=== PATIENT | female | born 1965 | race Two or more races ===

== ENCOUNTER 2018-09-20 18:07 | Emergency (ER) | payer MEDICARE, MEDICAID ==
[~2018-09-20] VITALS: Ht 160 cm; Wt 100.0 kg
[2018-09-20] MEDS ORDERED: ACETAMINOPHEN 500 MG TABLET PO ONE (18:30)
[2018-09-20 18:53] LABS: RAPID INFLUENZA A Negative (Negative); RAPID INFLUENZA B Negative (Negative)
[2018-09-20 19:04] LABS: INTERNATIONAL NORMALIZED RATIO 1.14 (0.93-1.1)
[2018-09-20 19:07] LABS: ALANINE AMINOTRANSFERASE 29 U/L (12-78); ALBUMIN 2.6 g/dL (3.4-5.0); ANION GAP 7 mmol/L (5-15); CALCIUM 7.9 mg/dL (8.5-10.1); CHLORIDE 109 mmol/L (98-107); CREATININE 0.84 mg/dL (0.55-1.02)
[2018-09-20 19:09] LABS: ALKALINE PHOSPHATASE 130 U/L (45-117); BILIRUBIN,TOTAL 2.7 mg/dL (0.2-1.0); TOTAL PROTEIN 7.5 g/dL (6.4-8.2)
[2018-09-20 19:11] LABS: MICROSCOPIC INDICATED
[2018-09-20 19:16] LABS: MD YES; MEAN CORPUSCULAR HEMOGLOBIN 33.9 pg (27.0-34.8); MEAN CORPUSCULAR HGB CONC 34.7 g/dL (32.4-35.8); MEAN CORPUSCULAR VOLUME 97.8 fL (80-100); MEAN PLATELET VOLUME 7.9 fL (7.4-10.4); PLATELET COUNT 84 x10^3/uL (130-400); RED BLOOD COUNT 3.36 x10^6/uL (3.82-5.3); RED CELL DISTRIBUTION WIDTH 15.9 % (9.6-15.2)
[2018-09-20 19:20] LABS: CULTURE INDICATED? NO
[2018-09-20 19:26] LABS: ANISOCYTOSIS 1+; BAND#(MANUAL) 0.07 x10^3/uL; BANDS%(MANUAL) 3 % (0-7); LYMPH#(MANUAL) 0.67 x10^3/uL (1-3.4); LYMPHS% (MANUAL) 29 % (22-44); MONOS#(MANUAL) 0.05 x10^3/uL (0.3-2.7); MONOS% (MANUAL) 2 % (2-9); NRBC % (MANUAL) 2 % (0-1); POLYCHROMASIA 1+; SEG#(MANUAL) 1.52 x10^3/uL (1.8-6.8); SEGS% (MANUAL) 66 % (42-75)
[2018-09-20 19:27] LABS: <PLATELET ESTIMATE> DECREASED; <PLT MORPHOLOGY> NORMAL PLT MORPH
[2018-09-20] MEDS ORDERED: CEFTRIAXONE 1,000 MG IM ONE (20:30)
[2018-09-20] MEDS ORDERED: CEFTRIAXONE 1,000 MG ONE (20:31)
[2018-09-20] MEDS ORDERED: LIDOCAINE-MPF 1%, 5ML ONE (20:31)
[2018-09-20 20:33] VITALS: BP 123/71
== END 2018-09-20 20:48 | disposition home or self-care (01) ==
LOC: ED 20:35
DX: J02.9 Acute pharyngitis, unspecified (principal); M79.18 Myalgia, other site; R50.81 Fever presenting with conditions classified elsewhere; R09.89 Other specified symptoms and signs involving the circulatory and respiratory systems; Z86.19 Personal history of other infectious and parasitic diseases; Z87.440 Personal history of urinary (tract) infections
CPT/HCPCS: 36415; 71045; 80053; 81001; 83605; 85025; 85610; 87040; 87400; 96372; 99284; J0696

== ENCOUNTER 2018-10-02 14:39 | Inpatient (IN) | payer MEDICARE, MEDICAID ==
[~2018-10-02] VITALS: Ht 160 cm; Wt 100.8 kg
[2018-10-02 15:29] LABS: BASOPHILS # (AUTO) 0.02 x10^3/uL (0-0.1); BASOPHILS % (AUTO) 0 % (0-1); EOSINOPHILS # (AUTO) 0.03 x10^3/uL (0-0.4); EOSINOPHILS % (AUTO) 1 % (1-7); LYMPHOCYTES % (AUTO) 18 % (22-44); MD NO; MEAN CORPUSCULAR HEMOGLOBIN 32.8 pg (27.0-34.8); MEAN CORPUSCULAR HGB CONC 34.6 g/dL (32.4-35.8); MEAN CORPUSCULAR VOLUME 94.9 fL (80-100); MONOCYTES # (AUTO) 0.34 x10^3/uL (0.2-0.8); MONOCYTES % (AUTO) 6 % (2-9); NEUTROPHILS # (AUTO) 4.22 x10^3/uL (1.8-6.8); NEUTROPHILS % (AUTO) 75 % (42-75); PLATELET COUNT 115 x10^3/uL (130-400); RED BLOOD COUNT 3.97 x10^6/uL (3.82-5.3); RED CELL DISTRIBUTION WIDTH 16.7 % (9.6-15.2)
[2018-10-02] MEDS ORDERED: ONDANSETRON 2MG/ML, 2ML IVPush ONE (15:30)
[2018-10-02] MEDS ORDERED: MORPHINE SULFATE 4 MG/ML, 1ML IVPush PRN (15:30)
[2018-10-02] MEDS ORDERED: FAMOTIDINE 20 MG/2 ML IVP ONE (15:30)
[2018-10-02] MEDS ORDERED: MAALOX/HYOSCYAMINE/LIDOCAINE 45 ML BTL PO ONE (15:30)
[2018-10-02] MEDS ORDERED: MAALOX/HYOSCYAMINE/LIDOCAINE 45 ML BTL ONE (15:33)
[2018-10-02] MEDS ORDERED: ONDANSETRON 2MG/ML, 2ML ONE (15:33)
[2018-10-02] MEDS ORDERED: MORPHINE SULFATE 4 MG/ML, 1ML ONE ×2 (15:33→20:03)
[2018-10-02] MEDS ORDERED: FAMOTIDINE 20 MG/2 ML ONE (15:34)
[2018-10-02 15:37] LABS: ALBUMIN 2.7 g/dL (3.4-5.0); ANION GAP 7 mmol/L (5-15); CALCIUM 7.9 mg/dL (8.5-10.1); CHLORIDE 110 mmol/L (98-107)
[2018-10-02 15:42] LABS: ALANINE AMINOTRANSFERASE 42 U/L (12-78); ALKALINE PHOSPHATASE 139 U/L (45-117); BILIRUBIN,TOTAL 7.8 mg/dL (0.2-1.0); CREATININE 0.55 mg/dL (0.55-1.02); TOTAL PROTEIN 7.8 g/dL (6.4-8.2)
[2018-10-02] MEDS ORDERED: SODIUM CHLORIDE 0.9% 1,000ML IVBOLUS ONE (16:00)
[2018-10-02 16:04] LABS: CULTURE INDICATED? YES; MICROSCOPIC INDICATED
[2018-10-02] MEDS ORDERED: SODIUM CHLORIDE 0.9% 1,000 ML IV SCH (17:43)
[2018-10-02] MEDS ORDERED: morphine SULFATE 10 MG/ML, 1ML IVPush PRN (18:00)
[2018-10-02] MEDS ORDERED: BISACODYL 10 MG SUPP PR PRN (18:00)
[2018-10-02] MEDS ORDERED: CEFTRIAXONE PMX 1GM/50ML 50 ML IV SCH (18:00)
[2018-10-02] MEDS ORDERED: ONDANSETRON 2MG/ML, 2ML IVPush PRN (18:00)
[2018-10-02] MEDS ORDERED: HEPARIN 5,000 UNITS/ML, 1ML ONE (18:51)
[2018-10-02] MEDS ORDERED: METRONIDAZOLE PMX 500MG/100ML 100 ML ONE (18:51)
[2018-10-02] MEDS ORDERED: CEFTRIAXONE PMX 1GM/50ML 50 ML ONE (18:51)
[2018-10-02] MEDS: HEPARIN 5,000 UNITS/ML, 1ML SQ SCH (19:23)
[2018-10-02] MEDS: LACTATED RINGERS 1,000 ML IV SCH (20:19)
[2018-10-02] MEDS: METRONIDAZOLE PMX 500MG/100ML 100 ML IV SCH (20:20)
[2018-10-02 20:32] VITALS: BP 108/49
[2018-10-02] MEDS ORDERED: FAMOTIDINE 20 MG/2 ML IVPush SCH (21:00)
[2018-10-03] MEDS: LACTATED RINGERS 1,000 ML IV SCH ×2 (00:31→04:48)
[2018-10-03] MEDS: HEPARIN 5,000 UNITS/ML, 1ML SQ SCH ×3 (01:58→16:36)
[2018-10-03 04:00] VITALS: BP 109/47
[2018-10-03] MEDS: METRONIDAZOLE PMX 500MG/100ML 100 ML IV SCH ×4 (04:00→21:23)
[2018-10-03 04:35] LABS: CHOL/HDL RATIO 1.4
[2018-10-03 04:36] LABS: LDL/HDL RATIO 0.2 (0.5-3.0)
[2018-10-03] MEDS ORDERED: BISACODYL 10 MG SUPP PR PRN (05:30)
[2018-10-03] MEDS ORDERED: ONDANSETRON 2MG/ML, 2ML IVPush PRN (05:30)
[2018-10-03] MEDS ORDERED: LACTATED RINGERS 1,000 ML IV SCH ×2 (05:30→19:30)
[2018-10-03 07:38] LABS: ALANINE AMINOTRANSFERASE 32 U/L (12-78); ANION GAP 8 mmol/L (5-15); CALCIUM 7.6 mg/dL (8.5-10.1); CHLORIDE 114 mmol/L (98-107); CREATININE 0.41 mg/dL (0.55-1.02)
[2018-10-03 07:41] LABS: ALKALINE PHOSPHATASE 111 U/L (45-117); BILIRUBIN,TOTAL 8.5 mg/dL (0.2-1.0)
[2018-10-03 08:15] LABS: MEAN CORPUSCULAR HEMOGLOBIN 31.9 pg (27.0-34.8); MEAN CORPUSCULAR HGB CONC 33.7 g/dL (32.4-35.8); MEAN CORPUSCULAR VOLUME 94.7 fL (80-100); MEAN PLATELET VOLUME 8.8 fL (7.4-10.4); PLATELET COUNT 88 x10^3/uL (130-400); RED BLOOD COUNT 3.45 x10^6/uL (3.82-5.3); RED CELL DISTRIBUTION WIDTH 17.1 % (9.6-15.2)
[2018-10-03 08:17] LABS: BASOPHILS # (AUTO) 0.01 x10^3/uL (0-0.1); BASOPHILS % (AUTO) 0 % (0-1); EOSINOPHILS # (AUTO) 0.03 x10^3/uL (0-0.4); EOSINOPHILS % (AUTO) 1 % (1-7); LYMPHOCYTES # (AUTO) 0.67 x10^3/uL (1-3.4); LYMPHOCYTES % (AUTO) 17 % (22-44); MD SCAN; MONOCYTES # (AUTO) 0.32 x10^3/uL (0.2-0.8); MONOCYTES % (AUTO) 8 % (2-9); NEUTROPHILS # (AUTO) 2.91 x10^3/uL (1.8-6.8); NEUTROPHILS % (AUTO) 74 % (42-75)
[2018-10-03] MEDS ORDERED: POTASSIUM CHLORIDE 10% 40 MEQ/30 ML UDC PO ONE (09:00)
[2018-10-03] MEDS: FAMOTIDINE 20 MG/2 ML IVPush SCH ×2 (09:10→21:23)
[2018-10-03] MEDS ORDERED: MAGNESIUM SULFATE PMX 4GM/100M 100 ML IV ONE (09:30)
[2018-10-03] MEDS ORDERED: POTASSIUM CHLORIDE 40 MEQ in SODIUM CHLORIDE 0.9% 500 ML IV ONE (09:30)
[2018-10-03] MEDS: THIAMINE 200 MG in SODIUM CHLORIDE 0.9% 50 ML IV SCH (09:51)
[2018-10-03] MEDS: D5%-0.45% NACL 1,000 ML IV SCH ×2 (10:42→17:30)
[2018-10-03 12:11] LABS: INTERNATIONAL NORMALIZED RATIO 1.34 (0.93-1.1)
[2018-10-03 12:31] VITALS: BP 101/66
[2018-10-03] MEDS ORDERED: SODIUM CHLORIDE 0.9% 1,000 ML IV SCH (17:43)
[2018-10-03] MEDS: CEFTRIAXONE PMX 1GM/50ML 50 ML IV SCH (17:53)
[2018-10-03] MEDS: morphine SULFATE 10 MG/ML, 1ML IVPush PRN (17:59)
[2018-10-03 19:12] VITALS: BP 105/69
[2018-10-04] MEDS: HEPARIN 5,000 UNITS/ML, 1ML SQ SCH ×4 (00:23→19:32)
[2018-10-04 01:35] VITALS: BP 105/54
[2018-10-04] MEDS: D5%-0.45% NACL 1,000 ML IV SCH ×3 (02:20→21:46)
[2018-10-04 05:22] LABS: CHLORIDE 110 mmol/L (98-107)
[2018-10-04 05:24] LABS: MEAN CORPUSCULAR HEMOGLOBIN 32.9 pg (27.0-34.8); MEAN CORPUSCULAR HGB CONC 34.6 g/dL (32.4-35.8); MEAN CORPUSCULAR VOLUME 95.2 fL (80-100); MEAN PLATELET VOLUME 8.4 fL (7.4-10.4); PLATELET COUNT 89 x10^3/uL (130-400); RED BLOOD COUNT 3.32 x10^6/uL (3.82-5.3); RED CELL DISTRIBUTION WIDTH 17.1 % (9.6-15.2)
[2018-10-04] MEDS: METRONIDAZOLE PMX 500MG/100ML 100 ML IV SCH ×3 (05:30→21:46)
[2018-10-04 05:37] LABS: ALANINE AMINOTRANSFERASE 31 U/L (12-78); ALBUMIN 2.1 g/dL (3.4-5.0); ALKALINE PHOSPHATASE 124 U/L (45-117); ANION GAP 5 mmol/L (5-15); BILIRUBIN,TOTAL 8.2 mg/dL (0.2-1.0); CALCIUM 7.5 mg/dL (8.5-10.1); CREATININE 0.49 mg/dL (0.55-1.02); TOTAL PROTEIN 6.2 g/dL (6.4-8.2)
[2018-10-04 05:55] LABS: BASOPHILS # (AUTO) 0.01 x10^3/uL (0-0.1); BASOPHILS % (AUTO) 0 % (0-1); EOSINOPHILS # (AUTO) 0.06 x10^3/uL (0-0.4); EOSINOPHILS % (AUTO) 1 % (1-7); LYMPHOCYTES # (AUTO) 0.79 x10^3/uL (1-3.4); LYMPHOCYTES % (AUTO) 17 % (22-44); MD SCAN; MONOCYTES # (AUTO) 0.41 x10^3/uL (0.2-0.8); MONOCYTES % (AUTO) 9 % (2-9); NEUTROPHILS # (AUTO) 3.34 x10^3/uL (1.8-6.8); NEUTROPHILS % (AUTO) 73 % (42-75)
[2018-10-04] MEDS ORDERED: POTASSIUM CHLORIDE 20 MEQ TAB.ER.PRT PO ONE (06:30)
[2018-10-04 06:42] VITALS: BP 104/65
[2018-10-04] MEDS: FAMOTIDINE 20 MG/2 ML IVPush SCH ×2 (08:33→21:45)
[2018-10-04] MEDS: NEUTRA PHOS K 250 MG TABLET PO SCH ×3 (08:33→21:45)
[2018-10-04] MEDS: THIAMINE 200 MG in SODIUM CHLORIDE 0.9% 50 ML IV SCH (11:57)
[2018-10-04 12:12] VITALS: BP 94/61
[2018-10-04] MEDS: CEFTRIAXONE PMX 1GM/50ML 50 ML IV SCH (18:26)
[2018-10-04 19:32] VITALS: BP 99/64
[2018-10-04 19:45] VITALS: BP 136/51
[2018-10-04] MEDS: morphine SULFATE 10 MG/ML, 1ML IVPush PRN (22:41)
[2018-10-05 05:03] LABS: CHLORIDE 111 mmol/L (98-107)
[2018-10-05 05:04] LABS: ALBUMIN 1.8 g/dL (3.4-5.0); ANION GAP 6 mmol/L (5-15)
[2018-10-05 05:06] LABS: MEAN CORPUSCULAR HEMOGLOBIN 33.3 pg (27.0-34.8); MEAN CORPUSCULAR HGB CONC 34.6 g/dL (32.4-35.8); MEAN CORPUSCULAR VOLUME 96.3 fL (80-100); MEAN PLATELET VOLUME 8.5 fL (7.4-10.4); PLATELET COUNT 86 x10^3/uL (130-400); RED BLOOD COUNT 3.24 x10^6/uL (3.82-5.3); RED CELL DISTRIBUTION WIDTH 17.1 % (9.6-15.2)
[2018-10-05] MEDS: METRONIDAZOLE PMX 500MG/100ML 100 ML IV SCH ×3 (05:20→21:13)
[2018-10-05 05:49] LABS: BASOPHILS # (AUTO) 0.01 x10^3/uL (0-0.1); BASOPHILS % (AUTO) 0 % (0-1); EOSINOPHILS % (AUTO) 3 % (1-7); LYMPHOCYTES # (AUTO) 0.97 x10^3/uL (1-3.4); LYMPHOCYTES % (AUTO) 26 % (22-44); MD SCAN; MONOCYTES # (AUTO) 0.37 x10^3/uL (0.2-0.8); MONOCYTES % (AUTO) 10 % (2-9); NEUTROPHILS # (AUTO) 2.25 x10^3/uL (1.8-6.8); NEUTROPHILS % (AUTO) 61 % (42-75)
[2018-10-05 07:00] VITALS: BP 94/60
[2018-10-05] MEDS ORDERED: POTASSIUM CHLORIDE 40 MEQ in SODIUM CHLORIDE 0.9% 500 ML IV ONE (07:00)
[2018-10-05 07:32] LABS: ALBUMIN 1.8 g/dL (3.4-5.0)
[2018-10-05 07:34] LABS: BILIRUBIN,INDIRECT 1.4 mg/dL (0.0-2.0); BILIRUBIN,TOTAL 5.4 mg/dL (0.2-1.0); TOTAL PROTEIN 5.8 g/dL (6.4-8.2)
[2018-10-05] MEDS: HEPARIN 5,000 UNITS/ML, 1ML SQ SCH ×2 (08:00→16:41)
[2018-10-05] MEDS: D5%-0.45% NACL 1,000 ML IV SCH ×2 (08:00→14:02)
[2018-10-05] MEDS: NEUTRA PHOS K 250 MG TABLET PO SCH ×3 (09:00→21:13)
[2018-10-05] MEDS: FAMOTIDINE 20 MG/2 ML IVPush SCH ×2 (09:00→21:13)
[2018-10-05] MEDS: THIAMINE 200 MG in SODIUM CHLORIDE 0.9% 50 ML IV SCH (09:30)
[2018-10-05] MEDS ORDERED: MIDAZOLAM 1 MG/ML, 2ML ONE (10:39)
[2018-10-05] MEDS ORDERED: FENTANYL PF 250 MCG/5ML ONE (10:39)
[2018-10-05 10:40] LABS: HCG UR SG >= 1.030 (1.003-1.030)
[2018-10-05] MEDS ORDERED: ROCURONIUM 10 MG/ML,10ML ONE (10:56)
[2018-10-05] MEDS ORDERED: PROPOFOL 10 MG/ML, 20ML ONE (10:56)
[2018-10-05] MEDS ORDERED: ONDANSETRON 2MG/ML, 2ML ONE (11:14)
[2018-10-05] MEDS ORDERED: DEXAMETHASONE 4 MG/ML, 1ML ONE (11:14)
[2018-10-05] MEDS ORDERED: SUGAMMADEX 200 MG/2 ML IVPush ONE (11:20)
[2018-10-05] MEDS ORDERED: OMNIPAQUE 350 MG/ML, 50 ML BOTTLE ONE (11:26)
[2018-10-05] MEDS ORDERED: HYDROmorphone 2 MG/ML, 1ML IVPush PRN (11:30)
[2018-10-05] MEDS ORDERED: MEPERIDINE/PF 25MG/0.5ML IVPush PRN (11:30)
[2018-10-05] MEDS ORDERED: FENTANYL PF 100 MCG/2ML IV PRN (11:30)
[2018-10-05] MEDS ORDERED: OXYcodone 5 MG/5 ML ORAL.SOL UDC PO PRN (11:30)
[2018-10-05] MEDS ORDERED: ONDANSETRON 2MG/ML, 2ML IV PRN (11:30)
[2018-10-05] MEDS ORDERED: HALOPERIDOL 5 MG/ML IV PRN (11:30)
[2018-10-05] MEDS ORDERED: LORazepam 2 MG/ML, 1ML IVPush PRN (11:30)
[2018-10-05 13:45] VITALS: BP 96/60
[2018-10-05] MEDS: CEFTRIAXONE PMX 1GM/50ML 50 ML IV SCH (16:40)
[2018-10-05 19:39] VITALS: BP 98/56
[2018-10-06] MEDS: HEPARIN 5,000 UNITS/ML, 1ML SQ SCH ×2 (01:06→08:34)
[2018-10-06] MEDS: METRONIDAZOLE PMX 500MG/100ML 100 ML IV SCH (04:58)
[2018-10-06] MEDS: D5%-0.45% NACL 1,000 ML IV SCH ×2 (04:59→11:52)
[2018-10-06 05:32] LABS: MEAN CORPUSCULAR HEMOGLOBIN 32.1 pg (27.0-34.8); MEAN CORPUSCULAR HGB CONC 33.5 g/dL (32.4-35.8); MEAN CORPUSCULAR VOLUME 95.8 fL (80-100); RED BLOOD COUNT 3.25 x10^6/uL (3.82-5.3)
[2018-10-06 05:42] LABS: CHLORIDE 110 mmol/L (98-107)
[2018-10-06 05:51] LABS: BASOPHILS % (AUTO) 0 % (0-1); EOSINOPHILS % (AUTO) 0 % (1-7); LYMPHOCYTES % (AUTO) 10 % (22-44); MD SCAN; MEAN PLATELET VOLUME 8.7 fL (7.4-10.4); MONOCYTES # (AUTO) 0.22 x10^3/uL (0.2-0.8); MONOCYTES % (AUTO) 7 % (2-9); NEUTROPHILS # (AUTO) 2.51 x10^3/uL (1.8-6.8); NEUTROPHILS % (AUTO) 83 % (42-75); PLATELET COUNT 72 x10^3/uL (130-400)
[2018-10-06 05:51] LABS: ALANINE AMINOTRANSFERASE 27 U/L (12-78); ALBUMIN 1.9 g/dL (3.4-5.0); ALKALINE PHOSPHATASE 132 U/L (45-117); ANION GAP 6 mmol/L (5-15); BILIRUBIN,TOTAL 3.6 mg/dL (0.2-1.0); CALCIUM 7.3 mg/dL (8.5-10.1); CREATININE 0.49 mg/dL (0.55-1.02); TOTAL PROTEIN 6.1 g/dL (6.4-8.2)
[2018-10-06 08:01] VITALS: BP 106/69
[2018-10-06] MEDS: FAMOTIDINE 20 MG/2 ML IVPush SCH (08:34)
[2018-10-06] MEDS: NEUTRA PHOS K 250 MG TABLET PO SCH (08:34)
[2018-10-06] MEDS: THIAMINE 200 MG in SODIUM CHLORIDE 0.9% 50 ML IV SCH (08:34)
[2018-10-06] MEDS ORDERED: CIPR500T3 PO (10:18)
[2018-10-06] MEDS ORDERED: METR500T PO (10:18)
== END 2018-10-06 12:56 | disposition home or self-care (01) | DRG 444 ==
LOC: ED 15:40 → UNDOADMIN 16:59 → EDIP 16:59 → CCU 17:43 → ED 19:37 → EDIP 19:46 → CCU 19:46 → 3NE 10-03 12:40 → DCLOUNGE 10-06 12:40
PROVIDERS: ADMIT Family Medicine; ATTEND Family Medicine
PROC: 0FC98ZZ Extirpation of Matter from Common Bile Duct, Via Natural or Artificial Opening Endoscopic (ICD-10-PCS; principal; 2018-10-02)
PROC: 0F798ZZ Dilation of Common Bile Duct, Via Natural or Artificial Opening Endoscopic (ICD-10-PCS; 2018-10-02)
PROC: BF101ZZ Fluoroscopy of Bile Ducts using Low Osmolar Contrast (ICD-10-PCS; 2018-10-02)
DX: K80.01 Calculus of gallbladder with acute cholecystitis with obstruction (principal); K85.10 Biliary acute pancreatitis without necrosis or infection; E44.0 Moderate protein-calorie malnutrition; E87.0 Hyperosmolality and hypernatremia; K76.6 Portal hypertension; K86.3 Pseudocyst of pancreas; K80.00 Calculus of gallbladder with acute cholecystitis without obstruction; D69.6 Thrombocytopenia, unspecified; R74.0 Nonspecific elevation of levels of transaminase and lactic acid dehydrogenase [LDH]; B19.20 Unspecified viral hepatitis C without hepatic coma; F10.20 Alcohol dependence, uncomplicated; R00.0 Tachycardia, unspecified; R16.1 Splenomegaly, not elsewhere classified; F17.210 Nicotine dependence, cigarettes, uncomplicated; F32.9 Major depressive disorder, single episode, unspecified; K70.30 Alcoholic cirrhosis of liver without ascites; L40.9 Psoriasis, unspecified; F12.90 Cannabis use, unspecified, uncomplicated; Z68.39 Body mass index [BMI] 39.0-39.9, adult; Z91.19 Patient's noncompliance with other medical treatment and regimen; Z80.9 Family history of malignant neoplasm, unspecified; Z82.5 Family history of asthma and other chronic lower respiratory diseases; Z83.3 Family history of diabetes mellitus
CPT/HCPCS: 36415; 74181; 74328; 76700; 80048; 80053; 80061; 80076; 81001; 81025; 82040; 83690; 83735; 84100; 85025; 85610; 86677; 87081; 87086; 99285; G0378; J0696; J1100; J1644; J2250; J2405; J2704; J3010; J3411; J3480; Q9967; C1769; J2270; J3475; J3490; J7030; J7040; J7120

== ENCOUNTER 2018-10-10 18:25 | Inpatient (IN) | payer MEDICARE, MEDICAID ==
[~2018-10-10] VITALS: Ht 160 cm; Wt 116.2 kg
[~2018-10-10 18:25] MED LIST: CIPR500T3 PO; METR500T PO
--- NOTE | 2018-10-10 18:46 | NUR ---
PT BROUGHT IN BY ANGELITA FOR ABD PAIN. PT HAD A GALLSTONE SURGERY IN SEPTEMBER. PT WITH ABD PAIN AND BILATERAL LOWER EXTREMITY SWELLING. PT A&OX4. PT WITH HX: HEP C. PT PLACED IN ROOM AND PLACED ON BP AND CONT. PULSE OXIMETER. IV STARTED BY ANGELITA. AT BEDSIDE.
--- NOTE | 2018-10-10 18:53 | NUR ---
PT REPORT FROM FANTA AGUILERA. THIS RN TO ASSUME CARE OF PT.
--- NOTE | 2018-10-10 18:59 | NUR ---
REPORT GIVEN TO SHIMA AGUILERA.
[2018-10-10] MEDS ORDERED: HYDROmorphone 2 MG/ML, 1ML IVPush PRN (19:00)
[2018-10-10] MEDS ORDERED: SODIUM CHLORIDE FLUSH 10ML SYR IVF ONE (19:00)
[2018-10-10] MEDS ORDERED: PLEASE ENTER HEIGHT AND WEIGHT MC SCH (19:00)
[2018-10-10] MEDS ORDERED: ONDANSETRON 2MG/ML, 2ML IVPush ONE (19:00)
[2018-10-10] MEDS ORDERED: ONDANSETRON 2MG/ML, 2ML ONE (19:02)
[2018-10-10] MEDS ORDERED: HYDROmorphone 2 MG/ML, 1ML ONE (19:02)
--- NOTE | 2018-10-10 19:04 | NUR ---
PT TO US.
--- NOTE | 2018-10-10 19:45 | NUR ---
LAB AT BEDSIDE FOR DRAW. PT ON COMMODE FOR ATTEMPT OF UA. BEENA.
[2018-10-10 19:59] LABS: INTERNATIONAL NORMALIZED RATIO 1.22 (0.93-1.1); PROTHROMBIN TIME 12.8 Seconds (9.6-11.5)
[2018-10-10 20:00] LABS: ALANINE AMINOTRANSFERASE 27 U/L (12-78); ALBUMIN 2.1 g/dL (3.4-5.0); ANION GAP 7 mmol/L (5-15); CHLORIDE 112 mmol/L (98-107)
[2018-10-10 20:03] LABS: ALKALINE PHOSPHATASE 144 U/L (45-117); BILIRUBIN,TOTAL 2.5 mg/dL (0.2-1.0); CREATININE 0.46 mg/dL (0.55-1.02); TOTAL PROTEIN 6.4 g/dL (6.4-8.2)
[2018-10-10 20:08] LABS: MICROSCOPIC INDICATED
[2018-10-10 20:28] LABS: MD YES; MEAN CORPUSCULAR HEMOGLOBIN 32.6 pg (27.0-34.8); MEAN CORPUSCULAR HGB CONC 34.2 g/dL (32.4-35.8); MEAN CORPUSCULAR VOLUME 95.5 fL (80-100); MEAN PLATELET VOLUME 7.6 fL (7.4-10.4); PLATELET COUNT 92 x10^3/uL (130-400); RED BLOOD COUNT 3.14 x10^6/uL (3.82-5.3); RED CELL DISTRIBUTION WIDTH 17.6 % (9.6-15.2)
[2018-10-10 20:30] LABS: CULTURE INDICATED? NO
--- NOTE | 2018-10-10 20:37 | NUR ---
AWAITING LAB RESULTS. NADN. [place]. CALL LIGHT WITHIN REACH.
[2018-10-10 21:02] LABS: BAND#(MANUAL) 0.03 x10^3/uL; BANDS%(MANUAL) 1 % (0-7); EOS#(MANUAL) 0.11 x10^3/uL (0.0-0.4); EOS% (MANUAL) 4 % (1-7); LYMPH#(MANUAL) 1.04 x10^3/uL (1-3.4); LYMPHS% (MANUAL) 37 % (22-44); MONOS#(MANUAL) 0.31 x10^3/uL (0.3-2.7); MONOS% (MANUAL) 11 % (2-9); SEG#(MANUAL) 1.32 x10^3/uL (1.8-6.8); SEGS% (MANUAL) 47 % (42-75)
[2018-10-10 21:14] LABS: POLYCHROMASIA 1+
[2018-10-10 21:15] LABS: <PLATELET ESTIMATE> DECREASED; <PLT MORPHOLOGY> NORMAL PLT MORPH; OVALOCYTES 1+
[2018-10-10 21:25] VITALS: BP 92/52
[2018-10-10] MEDS ORDERED: ONDANSETRON ODT 4 MG PO PRN (21:30)
[2018-10-10] MEDS ORDERED: BISACODYL 10 MG SUPP PR PRN (21:30)
[2018-10-10] MEDS: LACTATED RINGERS 1,000 ML IV SCH (21:59)
[2018-10-10] MEDS: HEPARIN 5,000 UNITS/ML, 1ML SQ SCH (21:59)
[2018-10-11] MEDS: morphine SULFATE 10 MG/ML, 1ML IVPush PRN ×3 (01:41→12:35)
[2018-10-11 01:55] VITALS: BP 97/66
[2018-10-11] MEDS: LACTATED RINGERS 1,000 ML IV SCH ×5 (02:34→23:20)
[2018-10-11 05:49] LABS: ANION GAP 5 mmol/L (5-15); CALCIUM 7.5 mg/dL (8.5-10.1); CHLORIDE 113 mmol/L (98-107)
[2018-10-11 05:51] LABS: MEAN CORPUSCULAR HGB CONC 33.1 g/dL (32.4-35.8); MEAN CORPUSCULAR VOLUME 96.7 fL (80-100); MEAN PLATELET VOLUME 8.6 fL (7.4-10.4); PLATELET COUNT 84 x10^3/uL (130-400); RED BLOOD COUNT 3.17 x10^6/uL (3.82-5.3); RED CELL DISTRIBUTION WIDTH 17.5 % (9.6-15.2)
[2018-10-11 05:53] LABS: ALANINE AMINOTRANSFERASE 24 U/L (12-78); ALKALINE PHOSPHATASE 132 U/L (45-117); BILIRUBIN,TOTAL 2.4 mg/dL (0.2-1.0); CREATININE 0.42 mg/dL (0.55-1.02); TOTAL PROTEIN 5.9 g/dL (6.4-8.2)
[2018-10-11 06:21] LABS: BASOPHILS # (AUTO) 0.01 x10^3/uL (0-0.1); BASOPHILS % (AUTO) 1 % (0-1); EOSINOPHILS # (AUTO) 0.11 x10^3/uL (0-0.4); EOSINOPHILS % (AUTO) 5 % (1-7); LYMPHOCYTES # (AUTO) 0.99 x10^3/uL (1-3.4); LYMPHOCYTES % (AUTO) 39 % (22-44); MD SCAN; MONOCYTES # (AUTO) 0.26 x10^3/uL (0.2-0.8); MONOCYTES % (AUTO) 10 % (2-9); NEUTROPHILS # (AUTO) 1.15 x10^3/uL (1.8-6.8); NEUTROPHILS % (AUTO) 45 % (42-75)
[2018-10-11 07:55] VITALS: BP 98/65
[2018-10-11] MEDS: HEPARIN 5,000 UNITS/ML, 1ML SQ SCH ×3 (08:23→23:21)
[2018-10-11 15:16] VITALS: BP 92/55
[2018-10-11 19:38] VITALS: BP 103/58
[2018-10-12 02:43] VITALS: BP 110/66
[2018-10-12] MEDS: morphine SULFATE 10 MG/ML, 1ML IVPush PRN ×3 (02:48→17:37)
[2018-10-12] MEDS: LACTATED RINGERS 1,000 ML IV SCH (04:32)
[2018-10-12 05:49] LABS: ALBUMIN 1.9 g/dL (3.4-5.0); ANION GAP 7 mmol/L (5-15); CALCIUM 7.5 mg/dL (8.5-10.1); CHLORIDE 109 mmol/L (98-107)
[2018-10-12 05:53] LABS: ALANINE AMINOTRANSFERASE 26 U/L (12-78); ALKALINE PHOSPHATASE 121 U/L (45-117); BILIRUBIN,TOTAL 3.3 mg/dL (0.2-1.0); CREATININE 0.46 mg/dL (0.55-1.02); MEAN CORPUSCULAR HEMOGLOBIN 32.6 pg (27.0-34.8); MEAN CORPUSCULAR HGB CONC 34.1 g/dL (32.4-35.8); MEAN CORPUSCULAR VOLUME 95.5 fL (80-100); MEAN PLATELET VOLUME 8.3 fL (7.4-10.4); PLATELET COUNT 76 x10^3/uL (130-400); RED BLOOD COUNT 3.25 x10^6/uL (3.82-5.3); RED CELL DISTRIBUTION WIDTH 17.1 % (9.6-15.2); TOTAL PROTEIN 6.1 g/dL (6.4-8.2)
[2018-10-12 06:35] LABS: BASOPHILS # (AUTO) 0.01 x10^3/uL (0-0.1); BASOPHILS % (AUTO) 1 % (0-1); EOSINOPHILS # (AUTO) 0.05 x10^3/uL (0-0.4); EOSINOPHILS % (AUTO) 2 % (1-7); LYMPHOCYTES # (AUTO) 0.78 x10^3/uL (1-3.4); LYMPHOCYTES % (AUTO) 35 % (22-44); MD NO; MONOCYTES # (AUTO) 0.23 x10^3/uL (0.2-0.8); MONOCYTES % (AUTO) 10 % (2-9); NEUTROPHILS # (AUTO) 1.15 x10^3/uL (1.8-6.8); NEUTROPHILS % (AUTO) 52 % (42-75)
[2018-10-12 07:43] VITALS: BP 116/69
[2018-10-12] MEDS ORDERED: LACTATED RINGERS 1,000 ML IV SCH (10:00)
[2018-10-12] MEDS: HEPARIN 5,000 UNITS/ML, 1ML SQ SCH ×2 (10:30→17:37)
[2018-10-12 12:39] VITALS: BP 120/73
[2018-10-12 19:18] VITALS: BP 109/83
[2018-10-12] MEDS: SPIRONOLACTONE 25 MG TABLET PO SCH (20:05)
[2018-10-13 00:14] VITALS: BP 111/63
[2018-10-13] MEDS: HEPARIN 5,000 UNITS/ML, 1ML SQ SCH ×4 (00:51→20:20)
[2018-10-13] MEDS: morphine SULFATE 10 MG/ML, 1ML IVPush PRN ×2 (01:58→09:31)
[2018-10-13 05:28] LABS: MEAN CORPUSCULAR HEMOGLOBIN 32.3 pg (27.0-34.8); MEAN CORPUSCULAR HGB CONC 33.7 g/dL (32.4-35.8); MEAN CORPUSCULAR VOLUME 95.7 fL (80-100); MEAN PLATELET VOLUME 8.4 fL (7.4-10.4); PLATELET COUNT 82 x10^3/uL (130-400); RED BLOOD COUNT 3.17 x10^6/uL (3.82-5.3); RED CELL DISTRIBUTION WIDTH 17.3 % (9.6-15.2)
[2018-10-13 05:42] LABS: CHLORIDE 108 mmol/L (98-107)
[2018-10-13 05:50] LABS: ALANINE AMINOTRANSFERASE 24 U/L (12-78); ALKALINE PHOSPHATASE 128 U/L (45-117); ANION GAP 7 mmol/L (5-15); BILIRUBIN,TOTAL 2.5 mg/dL (0.2-1.0); CALCIUM 7.3 mg/dL (8.5-10.1); TOTAL PROTEIN 6.3 g/dL (6.4-8.2)
[2018-10-13 06:03] LABS: BASOPHILS # (AUTO) 0.01 x10^3/uL (0-0.1); BASOPHILS % (AUTO) 1 % (0-1); EOSINOPHILS # (AUTO) 0.08 x10^3/uL (0-0.4); EOSINOPHILS % (AUTO) 3 % (1-7); LYMPHOCYTES # (AUTO) 0.92 x10^3/uL (1-3.4); LYMPHOCYTES % (AUTO) 39 % (22-44); MD SCAN; MONOCYTES # (AUTO) 0.28 x10^3/uL (0.2-0.8); MONOCYTES % (AUTO) 12 % (2-9); NEUTROPHILS # (AUTO) 1.08 x10^3/uL (1.8-6.8); NEUTROPHILS % (AUTO) 46 % (42-75)
[2018-10-13 08:41] VITALS: BP 118/69
[2018-10-13] MEDS: SPIRONOLACTONE 25 MG TABLET PO SCH ×2 (09:31→20:18)
[2018-10-13] MEDS ORDERED: LACTATED RINGERS 1,000 ML IV SCH (10:00)
[2018-10-13] MEDS ORDERED: morphine SULFATE 10 MG/ML, 1ML IVPush PRN (11:30)
[2018-10-13 14:45] VITALS: BP 122/73
[2018-10-13 19:14] VITALS: BP 114/64
[2018-10-14 00:55] VITALS: BP 127/71
[2018-10-14] MEDS: HEPARIN 5,000 UNITS/ML, 1ML SQ SCH ×2 (04:30→12:30)
[2018-10-14 06:04] LABS: ANION GAP 5 mmol/L (5-15); CALCIUM 7.3 mg/dL (8.5-10.1); CHLORIDE 110 mmol/L (98-107); CREATININE 0.44 mg/dL (0.55-1.02)
[2018-10-14 06:27] LABS: MEAN CORPUSCULAR HEMOGLOBIN 32.4 pg (27.0-34.8); MEAN CORPUSCULAR HGB CONC 34.1 g/dL (32.4-35.8); MEAN CORPUSCULAR VOLUME 95.1 fL (80-100); PLATELET COUNT 85 x10^3/uL (130-400); RED BLOOD COUNT 3.11 x10^6/uL (3.82-5.3); RED CELL DISTRIBUTION WIDTH 16.6 % (9.6-15.2)
[2018-10-14 07:03] LABS: MD YES
[2018-10-14 07:07] LABS: BANDS%(MANUAL) 4 % (0-7); EOS% (MANUAL) 4 % (1-7); LYMPH#(MANUAL) 1.17 x10^3/uL (1-3.4); LYMPHS% (MANUAL) 45 % (22-44); MONOS#(MANUAL) 0.21 x10^3/uL (0.3-2.7); MONOS% (MANUAL) 8 % (2-9); SEG#(MANUAL) 1.01 x10^3/uL (1.8-6.8); SEGS% (MANUAL) 39 % (42-75)
[2018-10-14 07:08] LABS: ANISOCYTOSIS 1+
[2018-10-14 07:09] LABS: <PLATELET ESTIMATE> DECREASED; <PLT MORPHOLOGY> NORMAL PLT MORPH; OVALOCYTES 1+; POLYCHROMASIA 1+
[2018-10-14 07:26] VITALS: BP 118/75
[2018-10-14 09:04] LABS: ALANINE AMINOTRANSFERASE 27 U/L (12-78); ALBUMIN 1.9 g/dL (3.4-5.0); ANION GAP 5 mmol/L (5-15); CALCIUM 7.3 mg/dL (8.5-10.1); CHLORIDE 110 mmol/L (98-107)
[2018-10-14 09:07] LABS: ALKALINE PHOSPHATASE 122 U/L (45-117); BILIRUBIN,TOTAL 2.1 mg/dL (0.2-1.0)
[2018-10-14] MEDS: SPIRONOLACTONE 25 MG TABLET PO SCH (10:17)
[2018-10-14] MEDS ORDERED: SPIR25TA PO (13:39)
[2018-10-14 13:57] VITALS: BP 123/79
[2018-11-01] MEDS ORDERED: POLY17PO5 PO (11:50)
[2018-11-01] MEDS ORDERED: OXYC5TAB3 PO (11:50)
[2018-11-01] MEDS ORDERED: TRAM50TA2 PO (11:50)
[2018-11-01] MEDS ORDERED: FAMO20TA7 PO (11:50)
[2018-11-01] MEDS ORDERED: ONDA4TAB13 SL (11:50)
[2018-11-01] MEDS ORDERED: CALC-666 PO (11:50)
== END 2018-10-14 17:30 | disposition home or self-care (01) | DRG 393 ==
LOC: ED 20:33 → EDIP 21:37 → 3NE 21:39
PROVIDERS: ADMIT Internal Medicine; ATTEND Internal Medicine
DX: K91.89 Other postprocedural complications and disorders of digestive system (principal); K85.10 Biliary acute pancreatitis without necrosis or infection; E43 Unspecified severe protein-calorie malnutrition; K76.6 Portal hypertension; D68.9 Coagulation defect, unspecified; Z68.42 Body mass index [BMI] 45.0-49.9, adult; K74.60 Unspecified cirrhosis of liver; E66.01 Morbid (severe) obesity due to excess calories; F17.210 Nicotine dependence, cigarettes, uncomplicated; D72.819 Decreased white blood cell count, unspecified; D69.6 Thrombocytopenia, unspecified; D64.9 Anemia, unspecified; L40.9 Psoriasis, unspecified; B18.2 Chronic viral hepatitis C; K80.20 Calculus of gallbladder without cholecystitis without obstruction; Z80.9 Family history of malignant neoplasm, unspecified; Z82.5 Family history of asthma and other chronic lower respiratory diseases; Z83.3 Family history of diabetes mellitus; Z90.89 Acquired absence of other organs; Z88.0 Allergy status to penicillin; Z88.6 Allergy status to analgesic agent; Z88.8 Allergy status to other drugs, medicaments and biological substances
CPT/HCPCS: 36415; 74181; 76700; 80048; 80053; 81001; 83690; 83735; 84100; 85025; 85610; 85730; 87081; 87880; 96374; 96375; G0378; J1170; J1644; J2405; J2270; J7120

== ENCOUNTER 2018-11-11 01:37 | Inpatient (IN) | payer MEDICARE, MEDICAID ==
[~2018-11-11] VITALS: Ht 160 cm; Wt 90.1 kg
[~2018-11-11 01:37] MED LIST changes: +CALC-666 PO; +FAMO20TA7 PO; +ONDA4TAB13 SL; +OXYC5TAB3 PO; +POLY17PO5 PO; +SPIR25TA PO; +TRAM50TA2 PO
--- NOTE | 2018-11-11 01:45 | NUR ---
PT BIB [facility] C/O RECENT CHOLECSYTECTOMY W/ SUTURE SITE RLQ. SUTURES APPEARS WELL APPROXIMATED AND NO SIGNS OF INFECTION NOTED. PT STATES RLQ ABD PAIN WORSENING TODAY AND "BELLY FEELING FULL." PT DENIES HYPOTENSIVE SYMPTOMS. DENIES ANY RECENT BLOODY/TARRY STOOLS. NO N/V/F NOTED. MONITORING APPLIED. VSS. CALL LIGHT WITHIN REACH. AWAITING MD ASSESSMENT.
[2018-11-11] MEDS ORDERED: SODIUM CHLORIDE FLUSH 10ML SYR IVF ONE (02:00)
[2018-11-11 02:37] LABS: BASOPHILS # (AUTO) 0.01 x10^3/uL (0-0.1); BASOPHILS % (AUTO) 0 % (0-1); EOSINOPHILS # (AUTO) 0.08 x10^3/uL (0-0.4); EOSINOPHILS % (AUTO) 2 % (1-7); LYMPHOCYTES # (AUTO) 1.12 x10^3/uL (1-3.4); LYMPHOCYTES % (AUTO) 24 % (22-44); MD NO; MEAN CORPUSCULAR HEMOGLOBIN 30.3 pg (27.0-34.8); MEAN CORPUSCULAR HGB CONC 33.6 g/dL (32.4-35.8); MEAN CORPUSCULAR VOLUME 90.2 fL (80-100); MEAN PLATELET VOLUME 8.1 fL (7.4-10.4); MONOCYTES # (AUTO) 0.48 x10^3/uL (0.2-0.8); MONOCYTES % (AUTO) 10 % (2-9); NEUTROPHILS # (AUTO) 3.01 x10^3/uL (1.8-6.8); NEUTROPHILS % (AUTO) 64 % (42-75); PLATELET COUNT 133 x10^3/uL (130-400); RED BLOOD COUNT 3.75 x10^6/uL (3.82-5.3); RED CELL DISTRIBUTION WIDTH 19.2 % (9.6-15.2)
[2018-11-11 02:39] LABS: ALANINE AMINOTRANSFERASE 18 U/L (12-78); ALBUMIN 2.3 g/dL (3.4-5.0); ANION GAP 7 mmol/L (5-15); CALCIUM 7.7 mg/dL (8.5-10.1); CHLORIDE 113 mmol/L (98-107); CREATININE 0.59 mg/dL (0.55-1.02)
[2018-11-11 02:41] LABS: ALKALINE PHOSPHATASE 97 U/L (45-117); TOTAL PROTEIN 7.4 g/dL (6.4-8.2)
--- NOTE | 2018-11-11 02:57 | NUR ---
PT TO CT NOW
[2018-11-11] MEDS ORDERED: OMNIPAQUE 350 MG/ML, 100ML BOTTLE ONE (03:00)
--- NOTE | 2018-11-11 03:08 | NUR ---
PT HAS RETURNED FROM CT AT THIS TIME.
--- NOTE | 2018-11-11 03:43 | NUR ---
PT STATES INCREASE IN PAIN AFTER "BEING JOSTLED SO MUCH" MD NOTIFIED. MD ORDERED 100 MG TRAMADOL PO. THIS RN GAVE MED PER MD ORDER.
--- NOTE | 2018-11-11 04:20 | NUR ---
PT SLEEPING COMFORTABLY ON GURNEY. RR EVEN AND UNLABORED. EASILY ROUSABLE TO NAME. CALL LIGHT WITHIN REACH. PT TBADM. AWAITING ADM BED.
[2018-11-11] MEDS ORDERED: ONDANSETRON 2MG/ML, 2ML IVPush PRN (04:30)
[2018-11-11] MEDS ORDERED: MORPHINE SULFATE 4 MG/ML, 1ML IVPush PRN (04:30)
[2018-11-11] MEDS ORDERED: SODIUM CHLORIDE FLUSH 10ML SYR IVF PRN (04:30)
[2018-11-11 04:57] VITALS: BP 91/56
[2018-11-11] MEDS ORDERED: TEMA30CA6 PO (05:17)
[2018-11-11] MEDS ORDERED: FLUO20CA19 PO (05:17)
[2018-11-11 07:15] VITALS: BP 102/65
[2018-11-11] MEDS ORDERED: D5%-0.45NACL+KCL 20MEQ 1,000 ML IV SCH (12:00)
[2018-11-11] MEDS ORDERED: BISACODYL 10 MG SUPP PR PRN (12:00)
[2018-11-11] MEDS ORDERED: ONDANSETRON 2MG/ML, 2ML IV PRN (12:00)
[2018-11-11] MEDS: SPIRONOLACTONE 25 MG TABLET PO SCH (12:52)
[2018-11-11 14:00] VITALS: BP 92/61
[2018-11-11 16:02] VITALS: BP 92/61
[2018-11-11 19:28] VITALS: BP 98/60
[2018-11-12] MEDS: SPIRONOLACTONE 25 MG TABLET PO SCH ×2 (00:22→12:02)
[2018-11-12 02:13] VITALS: BP 103/64
[2018-11-12 05:22] LABS: BASOPHILS # (AUTO) 0.03 x10^3/uL (0-0.1); BASOPHILS % (AUTO) 1 % (0-1); EOSINOPHILS # (AUTO) 0.14 x10^3/uL (0-0.4); EOSINOPHILS % (AUTO) 4 % (1-7); LYMPHOCYTES # (AUTO) 1.17 x10^3/uL (1-3.4); LYMPHOCYTES % (AUTO) 35 % (22-44); MD NO; MEAN CORPUSCULAR HEMOGLOBIN 30.5 pg (27.0-34.8); MEAN CORPUSCULAR HGB CONC 33.9 g/dL (32.4-35.8); MONOCYTES # (AUTO) 0.31 x10^3/uL (0.2-0.8); MONOCYTES % (AUTO) 9 % (2-9); NEUTROPHILS # (AUTO) 1.73 x10^3/uL (1.8-6.8); NEUTROPHILS % (AUTO) 51 % (42-75); PLATELET COUNT 132 x10^3/uL (130-400); RED CELL DISTRIBUTION WIDTH 19.2 % (9.6-15.2)
[2018-11-12 05:30] LABS: CHLORIDE 112 mmol/L (98-107)
[2018-11-12 05:35] LABS: ALANINE AMINOTRANSFERASE 16 U/L (12-78); ALBUMIN 1.9 g/dL (3.4-5.0); ALKALINE PHOSPHATASE 93 U/L (45-117); ANION GAP 4 mmol/L (5-15); BILIRUBIN, DIRECT 1.4 mg/dL (0.1-0.2); BILIRUBIN,INDIRECT 1.2 mg/dL (0.0-2.0); BILIRUBIN,TOTAL 2.6 mg/dL (0.2-1.0); CALCIUM 7.4 mg/dL (8.5-10.1); CREATININE 0.55 mg/dL (0.55-1.02); TOTAL PROTEIN 6.5 g/dL (6.4-8.2)
[2018-11-12 07:12] VITALS: BP 91/58
[2018-11-12] MEDS ORDERED: BISACODYL 10 MG SUPP PR PRN (12:00)
[2018-11-12] MEDS ORDERED: D5%-0.45NACL+KCL 20MEQ 1,000 ML IV SCH (12:00)
[2018-11-12 13:54] VITALS: BP 97/62
== END 2018-11-12 15:31 | disposition home or self-care (01) | DRG 947 ==
LOC: ED 02:16 → 4NOR 04:14
PROVIDERS: ADMIT Surgery; ATTEND Surgery
DX: G89.18 Other acute postprocedural pain (principal); K85.90 Acute pancreatitis without necrosis or infection, unspecified; K76.6 Portal hypertension; K70.30 Alcoholic cirrhosis of liver without ascites; B18.2 Chronic viral hepatitis C; D69.6 Thrombocytopenia, unspecified; F32.9 Major depressive disorder, single episode, unspecified; L40.9 Psoriasis, unspecified; D64.9 Anemia, unspecified; E87.8 Other disorders of electrolyte and fluid balance, not elsewhere classified; E66.9 Obesity, unspecified; Z68.35 Body mass index [BMI] 35.0-35.9, adult; Z80.9 Family history of malignant neoplasm, unspecified; Z82.5 Family history of asthma and other chronic lower respiratory diseases; Z83.3 Family history of diabetes mellitus; Z87.891 Personal history of nicotine dependence; Z88.6 Allergy status to analgesic agent; Z90.49 Acquired absence of other specified parts of digestive tract; Z88.0 Allergy status to penicillin
CPT/HCPCS: 36415; 74018; 74177; 78226; 80053; 82247; 82248; 83690; 85025; 99285; G0378; Q9967; A9537; J3480

== ENCOUNTER 2018-12-13 21:04 | Emergency (ER) | payer MEDICARE, MEDICAID ==
[~2018-12-13] VITALS: Ht 160 cm; Wt 90.0 kg
[~2018-12-13 21:04] MED LIST changes: +FLUO20CA19 PO; +OXYC5TAB2 PO; +TEMA30CA6 PO
[2018-12-14 00:16] LABS: BASOPHILS # (AUTO) 0.02 x10^3/uL (0-0.1); BASOPHILS % (AUTO) 1 % (0-1); EOSINOPHILS # (AUTO) 0.11 x10^3/uL (0-0.4); EOSINOPHILS % (AUTO) 2 % (1-7); LYMPHOCYTES # (AUTO) 1.45 x10^3/uL (1-3.4); LYMPHOCYTES % (AUTO) 33 % (22-44); MD NO; MEAN CORPUSCULAR HGB CONC 33.3 g/dL (32.4-35.8); MEAN CORPUSCULAR VOLUME 90.1 fL (80-100); MEAN PLATELET VOLUME 8.3 fL (7.4-10.4); MONOCYTES # (AUTO) 0.41 x10^3/uL (0.2-0.8); MONOCYTES % (AUTO) 9 % (2-9); NEUTROPHILS # (AUTO) 2.42 x10^3/uL (1.8-6.8); NEUTROPHILS % (AUTO) 55 % (42-75); PLATELET COUNT 114 x10^3/uL (130-400); RED BLOOD COUNT 4.06 x10^6/uL (3.82-5.3)
[2018-12-14 00:27] LABS: ALANINE AMINOTRANSFERASE 65 U/L (12-78); ALBUMIN 2.6 g/dL (3.4-5.0); ANION GAP 5 mmol/L (5-15); CALCIUM 8.6 mg/dL (8.5-10.1); CHLORIDE 111 mmol/L (98-107); CREATININE 0.48 mg/dL (0.55-1.02)
[2018-12-14 00:28] LABS: ALKALINE PHOSPHATASE 115 U/L (45-117); BILIRUBIN,TOTAL 3.2 mg/dL (0.2-1.0); TOTAL PROTEIN 7.9 g/dL (6.4-8.2)
--- NOTE | 2018-12-14 03:20 | NUR ---
PT UP TO BATHROOM FOR UA.
--- NOTE | 2018-12-14 03:40 | NUR ---
UA SENT TO LAB. PT RESTING. VSS. PA AT BEDSIDE. CALL LIGHT IN REACH
[2018-12-14] MEDS ORDERED: SODIUM CHLORIDE 0.9% 1,000ML IVBOLUS ONE (04:00)
[2018-12-14 04:02] LABS: MICROSCOPIC INDICATED
[2018-12-14 04:12] LABS: CULTURE INDICATED? NO
[2018-12-14 04:59] VITALS: BP 112/49
--- NOTE | 2018-12-14 05:15 | NUR ---
PIV IN PLACE AND FLUIDS RUNNING. PT REMINDED THAT STOOL SAMPLE IS NEEDED. VSS. PT HAS NO NEEDS AT THIS TIME
--- NOTE | 2018-12-14 05:54 | NUR ---
Patient given discharge instructions and they have confirmed that they understand the instructions. Patient ambulatory with steady gait.
[2018-12-14 06:01] LABS: AMPHETAMINE SCREEN, URINE Positive (Negative); BARBITURATE SCREEN, URINE Negative (Negative); BENZODIAZEPINE SCREEN, URINE Negative (Negative); CANNABINOID SCREEN, URINE Negative (Negative); COCAINE SCREEN, URINE Negative (Negative); METHADONE SCREEN, URINE Negative (Negative); OPIATE SCREEN, URINE Negative (Negative)
== END 2018-12-14 05:57 | disposition home or self-care (01) ==
LOC: ED 23:59
DX: R19.7 Diarrhea, unspecified (principal); M54.5 Low back pain; Z90.49 Acquired absence of other specified parts of digestive tract; Z86.19 Personal history of other infectious and parasitic diseases; F17.200 Nicotine dependence, unspecified, uncomplicated
CPT/HCPCS: 36415; 74021; 76700; 80053; 80307; 81001; 83690; 85025; 96360; 99284; J7030

== ENCOUNTER 2018-12-17 17:26 | Emergency (ER) | payer MEDICARE, MEDICAID ==
[~2018-12-17] VITALS: Ht 160 cm; Wt 88.0 kg
--- NOTE | 2018-12-17 18:14 | NUR ---
FIRST CONTACT WITH PT: Pt resting on gurney connected to all monitors. Pt states, "I was told I have a bladder infection last tuesday, I havn't got my antibiotics filled because I don't get paid till Tuesday. My back is hurting where my kidneys are. My left knee is hurting and cracking." NADN. Pt has call light within reach. All safety measures in place.
--- NOTE | 2018-12-17 18:58 | NUR ---
Pt up with SBA to bedside commode to provide urine sample. Pt assisted back to [facility]. Sent UA to lab.
--- NOTE | 2018-12-17 18:59 | NUR ---
Provided bedside report to ALE Ramachandran. All questions answered.
[2018-12-17 19:08] LABS: MICROSCOPIC INDICATED
[2018-12-17 19:16] VITALS: BP 93/38
--- NOTE | 2018-12-17 19:38 | NUR ---
pt will be dc'd
[2018-12-17 19:49] LABS: CULTURE INDICATED? NO
== END 2018-12-17 19:58 | disposition home or self-care (01) ==
LOC: ED 19:09
DX: M13.862 Other specified arthritis, left knee (principal); M54.5 Low back pain; G89.29 Other chronic pain; F17.200 Nicotine dependence, unspecified, uncomplicated; I10 Essential (primary) hypertension; R30.0 Dysuria; Z90.49 Acquired absence of other specified parts of digestive tract; Z86.19 Personal history of other infectious and parasitic diseases
CPT/HCPCS: 81001; 99284

== ENCOUNTER 2018-12-25 01:12 | Emergency (ER) | payer MEDICARE, MEDICAID ==
[~2018-12-25] VITALS: Ht 162.6 cm; Wt 88.0 kg
[2018-12-25 01:17] VITALS: BP 134/74
[2018-12-25] MEDS ORDERED: AZITHROMYCIN 250 MG TABLET ONE (02:04)
--- NOTE | 2018-12-25 02:11 | NUR ---
BREAK RN: PT DEMANDING TO BE EVALUATED FOR BACK PAIN. PT INFORMED THIS WAS NOT A PART OF HER ORIGINAL COMPLAINT. PT STATED, "WELL THAT'S WHAT I CAME IN FOR". ERP AWARE, PT REMAINS DISCHARGED. PT REFUSED ORDERED ABX. PT REFUSING TO LEAVE, SECURITY CALLED TO ASSIST PT AND HER FRIEND SAFELY OUT.
--- NOTE | 2018-12-25 02:15 | NUR ---
PT VERBALLY ABUSIVE TO STAFF, SHOUTING A PLETHORA OF SWEAR WORDS AND YELLING AT HER MALE FRIEND WHO IS LAYING ON THE FLOOR. PT ABLE TO DRESS HERSELF. SECURITY ABLE TO ESCORT PT OUT OF ER.
[2018-12-25] MEDS ORDERED: AZITHROMYCIN 500 MG TABLET PO ONE (02:30)
[2018-12-25] MEDS ORDERED: AZITHROMYCIN 250 MG TABLET PO ONE (02:30)
== END 2018-12-25 02:16 | disposition home or self-care (01) ==
LOC: ED 01:30
DX: J20.9 Acute bronchitis, unspecified (principal); Z90.49 Acquired absence of other specified parts of digestive tract; Z90.89 Acquired absence of other organs
CPT/HCPCS: 71045; 99283

== ENCOUNTER 2018-12-25 10:56 | Emergency (ER) | payer MEDICARE, MEDICAID ==
[~2018-12-25] VITALS: Ht 160 cm; Wt 90.0 kg
--- NOTE | 2018-12-25 13:00 | NUR ---
ASSUMED CARE OF PT AT THIS TIME 1300 FROM LOBBY. PT TO ROOM VIA WHEELCHAIR, REQUIRED ASSISTANCE TO BED. 53 Y/O F PRESENTS STATED "I WAS SEEN HERE LAST NIGHT AND DISCHARGED THIS MORNING, THEY TOLD ME I HAVE BRONCHITIS BUT I'M IN SO MUCH PAIN IN MY BACK, EARS, NECK AND SINUSES, I CAN BARELY WALK BECAUSE THEY PAIN." RATES BACK, NECK, EAR PAIN 10/10. CONT PULSE OX, BP, CARDIAC MONITORS APPLIED. VSS. ST ON MONITOR. AWAITING EVAL BY ERP. A&OX4. ASSESSMENT COMPLETED.
--- NOTE | 2018-12-25 13:18 | NUR ---
DR. DOSHI AT BEDSIDE FOR EVALUATION.
[2018-12-25] MEDS ORDERED: METHOCARBAMOL 750 MG TABLET PO ONE (13:30)
[2018-12-25 13:44] LABS: BASOPHILS # (AUTO) 0.02 x10^3/uL (0-0.1); BASOPHILS % (AUTO) 1 % (0-1); EOSINOPHILS # (AUTO) 0.11 x10^3/uL (0-0.4); EOSINOPHILS % (AUTO) 3 % (1-7); LYMPHOCYTES # (AUTO) 1.16 x10^3/uL (1-3.4); LYMPHOCYTES % (AUTO) 34 % (22-44); MD NO; MEAN CORPUSCULAR HGB CONC 34.3 g/dL (32.4-35.8); MEAN CORPUSCULAR VOLUME 87.6 fL (80-100); MONOCYTES % (AUTO) 12 % (2-9); NEUTROPHILS # (AUTO) 1.77 x10^3/uL (1.8-6.8); NEUTROPHILS % (AUTO) 51 % (42-75); PLATELET COUNT 108 x10^3/uL (130-400); RED BLOOD COUNT 4.25 x10^6/uL (3.82-5.3); RED CELL DISTRIBUTION WIDTH 19.8 % (9.6-15.2)
[2018-12-25 13:51] LABS: ALBUMIN 2.6 g/dL (3.4-5.0); ANION GAP 6 mmol/L (5-15); CALCIUM 8.3 mg/dL (8.5-10.1); CHLORIDE 110 mmol/L (98-107); CREATININE 0.52 mg/dL (0.55-1.02)
[2018-12-25 14:03] LABS: ALANINE AMINOTRANSFERASE 48 U/L (12-78); ALKALINE PHOSPHATASE 112 U/L (45-117); BILIRUBIN,TOTAL 4.5 mg/dL (0.2-1.0); TOTAL PROTEIN 7.5 g/dL (6.4-8.2)
--- NOTE | 2018-12-25 14:15 | NUR ---
PT RESTING COMFORTABLY. DENIES NEED TO USE RESTROOM. AWARE UA SAMPLE NEEDED. CALL LIGHT IN REACH. VSS. TO MEDICATE PER ORDER. WARM BLANKET PROVIDED FOR COMFORT.
[2018-12-25] MEDS ORDERED: METHOCARBAMOL 750 MG TABLET ONE (15:09)
--- NOTE | 2018-12-25 15:26 | NUR ---
PT MEDICATED NOTED PER ORDER FOR 10/10 BACK AND NECK PAIN. PT AMBULATED TO RESTROOM WITH OWN CANE WITH ASSISTANCE. CLEAN CATCH UA COLLECTED AND SENT TO LAB. CALL LIGHT IN REACH. FALL PRECAUTIONS IN PLACE. WARM BLANKET PROVIDED FOR COMFORT.
[2018-12-25 15:47] LABS: CULTURE INDICATED? YES; MICROSCOPIC INDICATED
--- NOTE | 2018-12-25 16:30 | NUR ---
PT REPORTS PAIN IS UNIMPROVED, DISCUSSED WITH DR. DOSHI, AWARE, NO NEW ORDERS RECEIVED. PT UP FOR RECHECK. CALL LIGHT IN REACH. VSS. DENIES NEED TO USE RESTROOM.
[2018-12-25 17:18] VITALS: BP 126/57
--- NOTE | 2018-12-25 17:20 | NUR ---
Patient/Caregiver given discharge instructions and they have confirmed that they understand the instructions. Patient ambulatory with steady gait using cane. Given snacks, cab voucher & prescription assistance information .
== END 2018-12-25 17:22 | disposition home or self-care (01) ==
LOC: ED 14:09
DX: N30.00 Acute cystitis without hematuria (principal); I10 Essential (primary) hypertension; M19.90 Unspecified osteoarthritis, unspecified site; F17.200 Nicotine dependence, unspecified, uncomplicated; Z90.49 Acquired absence of other specified parts of digestive tract; Z86.19 Personal history of other infectious and parasitic diseases
CPT/HCPCS: 36415; 80053; 81001; 83690; 85025; 87086; 99283

== ENCOUNTER 2019-01-01 11:50 | Emergency (ER) | payer MEDICARE, MEDICAID ==
[~2019-01-01] VITALS: Ht 160 cm; Wt 87.3 kg
--- NOTE | 2019-01-01 12:27 | NUR ---
PT TO ROOM FROM LOBBY, PLACED ON MONITOR, C/O 910 RUQ ABD PAIN SINCE 7AM. ALSO C/O EYES BURNING. HX CIRRHOSIS, HEP C
[2019-01-01 13:39] LABS: BASOPHILS # (AUTO) 0.02 x10^3/uL (0-0.1); BASOPHILS % (AUTO) 0 % (0-1); EOSINOPHILS # (AUTO) 0.04 x10^3/uL (0-0.4); EOSINOPHILS % (AUTO) 1 % (1-7); LYMPHOCYTES # (AUTO) 0.96 x10^3/uL (1-3.4); LYMPHOCYTES % (AUTO) 20 % (22-44); MD NO; MEAN CORPUSCULAR HEMOGLOBIN 30.3 pg (27.0-34.8); MEAN PLATELET VOLUME 8.3 fL (7.4-10.4); MONOCYTES # (AUTO) 0.28 x10^3/uL (0.2-0.8); MONOCYTES % (AUTO) 6 % (2-9); NEUTROPHILS # (AUTO) 3.59 x10^3/uL (1.8-6.8); NEUTROPHILS % (AUTO) 73 % (42-75); PLATELET COUNT 126 x10^3/uL (130-400); RED BLOOD COUNT 4.23 x10^6/uL (3.82-5.3); RED CELL DISTRIBUTION WIDTH 19.9 % (9.6-15.2)
--- NOTE | 2019-01-01 13:44 | NUR ---
PT RESTING IN [facility] WATCHING TV, ON MONITOR, VSS, NAD. UA SENT TO LAB
[2019-01-01 13:49] LABS: INTERNATIONAL NORMALIZED RATIO 1.22 (0.93-1.1); PROTHROMBIN TIME 12.7 Seconds (9.6-11.5)
[2019-01-01 13:51] LABS: ALANINE AMINOTRANSFERASE 35 U/L (12-78); ALBUMIN 2.6 g/dL (3.4-5.0); ANION GAP 5 mmol/L (5-15); CHLORIDE 112 mmol/L (98-107)
[2019-01-01 13:53] LABS: ALKALINE PHOSPHATASE 113 U/L (45-117); BILIRUBIN,TOTAL 3.6 mg/dL (0.2-1.0)
[2019-01-01 14:04] LABS: MICROSCOPIC INDICATED
[2019-01-01 14:07] LABS: CULTURE INDICATED? YES
--- NOTE | 2019-01-01 14:45 | NUR ---
PT SLEEPING IN GURNEY, EQUAL CHEST RISE AND FALL. AWAITING US AND LAB RESULTS
--- NOTE | 2019-01-01 15:45 | NUR ---
PT SLEEPING IN GURNEY, EQUAL CHEST RISE AND FALL. CALL LIGHT WITHIN REACH
--- NOTE | 2019-01-01 16:11 | NUR ---
CALLED US RE: US BEING CANCELLED, US TECH STATED THE TEST WAS COMPLETED BUT THE ORDER WAS CANCELLED BY MISTAKE. ORDER REENTERED, US SAID IMAGES WILL BE READ HUONG
--- NOTE | 2019-01-01 17:10 | NUR ---
US CALLED AGAIN TO UPLOAD RESULTS, US TECH STATED HE WOULD HAVE THEM UPLOADED HUONG
[2019-01-01 17:20] VITALS: BP 113/50
== END 2019-01-01 18:25 | disposition home or self-care (01) ==
LOC: ED 14:09
DX: N30.00 Acute cystitis without hematuria (principal); I10 Essential (primary) hypertension; F17.200 Nicotine dependence, unspecified, uncomplicated; Z87.19 Personal history of other diseases of the digestive system; Z86.19 Personal history of other infectious and parasitic diseases; Z90.49 Acquired absence of other specified parts of digestive tract
CPT/HCPCS: 36415; 74022; 76700; 80053; 81001; 83690; 85025; 85610; 85730; 87086; 99284

== ENCOUNTER 2019-05-17 12:02 | Emergency (ER) | payer MEDICARE, MEDICAID ==
[~2019-05-17] VITALS: Ht 160 cm; Wt 87.5 kg
[2019-05-17 12:21] VITALS: BP 94/59
== END 2019-05-17 15:21 | disposition home or self-care (01) ==
LOC: ED 15:15
DX: N30.00 Acute cystitis without hematuria (principal); R53.1 Weakness; R11.2 Nausea with vomiting, unspecified; F17.210 Nicotine dependence, cigarettes, uncomplicated; Z90.89 Acquired absence of other organs; Z90.49 Acquired absence of other specified parts of digestive tract
CPT/HCPCS: 36415; 80053; 81001; 83690; 85025; 87086; 99283

== ENCOUNTER 2020-01-18 18:28 | Emergency (ER) | payer MEDICARE, MEDICAID ==
[~2020-01-18] VITALS: Ht 160 cm; Wt 75.0 kg
--- NOTE | 2020-01-18 19:03 | NUR ---
BIBA FOR N/V/LOOSE STOOL AND LETHARGY X2 DAYS AFTER EATING BAD CHICKEN FROM [employer] THE DAY PRIOR. PT CONNECTED TO ALL MONITORS. VSS. NO FEVER AND NO RESP S/S REPORTED TO THIS RN. NO NEEDS EXPRESSED. TO BS FOR ASSESSMENT.
--- NOTE | 2020-01-18 19:15 | NUR ---
REPORT RECEIVED FROM ALE APPLE WHO ASSUMED CARE OF PT. Addendum: 01/18/20 at 1924 by LEILA REPORT RECEIVED FROM ALE APPLE. ASSUMED CARE OF PT.
--- NOTE | 2020-01-18 19:37 | NUR ---
PT REQUESTING 7-UP BUT REPORTING NAUSEA. DISCUSSED WITH SERGIO GUILLAUME. WILL MEDICATE PT ORDERED. PT AWARE WE NEED STOOL SAMPLE. HAT AT BEDSIDE. PT ON CONT BP AND O2 MONITORS. CALL LIGHT WITHIN REACH. WILL CONT TO MONITOR PT.
[2020-01-18] MEDS ORDERED: ONDANSETRON ODT 4 MG ONE (19:39)
[2020-01-18 19:48] LABS: ALANINE AMINOTRANSFERASE 33 U/L (12-78); ALBUMIN 2.2 g/dL (3.4-5.0); ANION GAP 5 mmol/L (5-15); CALCIUM 8.3 mg/dL (8.5-10.1); CHLORIDE 113 mmol/L (98-107)
[2020-01-18 19:50] LABS: ALKALINE PHOSPHATASE 139 U/L (45-117); BILIRUBIN,TOTAL 2.8 mg/dL (0.2-1.0)
[2020-01-18] MEDS ORDERED: ONDANSETRON ODT 4 MG PO ONE (20:00)
--- NOTE | 2020-01-18 20:30 | NUR ---
PT CURRENTLY SLEEPING ON GURNEY. NAD NOTED. SKIN PWD. RESP EVEN AND UNLABORED. PT AWARE WE NEED STOOL SAMPLE, UNABLE TO PROVIDE AT THIS TIME.
[2020-01-18 20:38] LABS: BASOPHILS # (AUTO) 0.02 x10^3/uL (0-0.1); BASOPHILS % (AUTO) 1 % (0-1); EOSINOPHILS # (AUTO) 0.14 x10^3/uL (0-0.4); EOSINOPHILS % (AUTO) 3 % (1-7); LYMPHOCYTES # (AUTO) 1.56 x10^3/uL (1-3.4); LYMPHOCYTES % (AUTO) 38 % (22-44); MD SCAN; MEAN CORPUSCULAR HEMOGLOBIN 34.9 pg (27.0-34.8); MEAN CORPUSCULAR VOLUME 102.8 fL (80-100); MEAN PLATELET VOLUME 8.3 fL (7.4-10.4); MONOCYTES # (AUTO) 0.38 x10^3/uL (0.2-0.8); MONOCYTES % (AUTO) 9 % (2-9); NEUTROPHILS # (AUTO) 2.05 x10^3/uL (1.8-6.8); NEUTROPHILS % (AUTO) 50 % (42-75); PLATELET COUNT 91 x10^3/uL (130-400); RED BLOOD COUNT 3.73 x10^6/uL (3.82-5.3); RED CELL DISTRIBUTION WIDTH 17.3 % (9.6-15.2)
--- NOTE | 2020-01-18 21:39 | NUR ---
PT PROVIDED WITH SPRITE. PT TOLERATED WELL. PT NOW DOZING ON GURNEY. NAD NOTED. SKIN WARM AND DRY. RESP EVENA ND UNLABORED. CALL LIGHT WITHIN REACH. WILL CONT TO MONITOR PT.
--- NOTE | 2020-01-18 21:57 | NUR ---
REPORT GIVEN TO ALE ALVAREZ WHO ASSUMED CARE OF PT.
[2020-01-18] MEDS ORDERED: POTASSIUM CHLORIDE 20 MEQ TAB.ER.PRT PO ONE (22:00)
[2020-01-18] MEDS ORDERED: SODIUM CHLORIDE 0.9% 1,000ML IVBOLUS ONE (22:00)
[2020-01-18] MEDS ORDERED: POTASSIUM CHLORIDE 20 MEQ TAB.ER.PRT ONE (22:34)
[2020-01-18 22:37] VITALS: BP 94/30
== END 2020-01-19 00:27 | disposition home or self-care (01) ==
LOC: ED 19:24
DX: R11.2 Nausea with vomiting, unspecified (principal); E86.0 Dehydration; R19.7 Diarrhea, unspecified; E87.6 Hypokalemia; Z86.19 Personal history of other infectious and parasitic diseases; I10 Essential (primary) hypertension; F17.200 Nicotine dependence, unspecified, uncomplicated
CPT/HCPCS: 36415; 80053; 85025; 96360; 99285; J7030; Q0162

== ENCOUNTER 2020-02-04 20:37 | Emergency (ER) | payer MEDICARE, MEDICAID ==
[~2020-02-04] VITALS: Ht 160 cm; Wt 75.0 kg
--- NOTE | 2020-02-04 20:54 | NUR ---
FSBS 124
--- NOTE | 2020-02-04 20:58 | NUR ---
hypotensive, sandi aware. fluids per . piv est labs drawn. report to lissette sterling. as
--- NOTE | 2020-02-04 21:10 | NUR ---
PT REPORT FROM ALE MEYERS. PT CARE TO BE ASSUMED. PT CURRENTLY RESTING QUIETY ON [facility].
[2020-02-04 21:14] LABS: BASOPHILS # (AUTO) 0.04 x10^3/uL (0-0.1); BASOPHILS % (AUTO) 1 % (0-1); EOSINOPHILS % (AUTO) 2 % (1-7); LYMPHOCYTES # (AUTO) 1.34 x10^3/uL (1-3.4); LYMPHOCYTES % (AUTO) 26 % (22-44); MD NO; MEAN CORPUSCULAR HEMOGLOBIN 34.1 pg (27.0-34.8); MEAN CORPUSCULAR HGB CONC 33.9 g/dL (32.4-35.8); MEAN CORPUSCULAR VOLUME 100.5 fL (80-100); MONOCYTES # (AUTO) 0.42 x10^3/uL (0.2-0.8); MONOCYTES % (AUTO) 8 % (2-9); NEUTROPHILS # (AUTO) 3.27 x10^3/uL (1.8-6.8); NEUTROPHILS % (AUTO) 63 % (42-75); PLATELET COUNT 123 x10^3/uL (130-400); RED BLOOD COUNT 3.67 x10^6/uL (3.82-5.3); RED CELL DISTRIBUTION WIDTH 15.8 % (9.6-15.2)
[2020-02-04 21:25] LABS: ALANINE AMINOTRANSFERASE 24 U/L (12-78); ALBUMIN 2.1 g/dL (3.4-5.0); ANION GAP 7 mmol/L (5-15); CALCIUM 8.5 mg/dL (8.5-10.1); CHLORIDE 110 mmol/L (98-107); CREATININE 0.55 mg/dL (0.55-1.02)
[2020-02-04 21:28] LABS: ALKALINE PHOSPHATASE 151 U/L (45-117); BILIRUBIN,TOTAL 3.4 mg/dL (0.2-1.0); TOTAL PROTEIN 6.9 g/dL (6.4-8.2)
--- NOTE | 2020-02-04 21:34 | NUR ---
PT NOTIFIED OF NEED FOR URINE SPECIMEN; DENIES URGE TO VOID. STATES "I CAN'T GO. I WENT BEFORE I GOT HERE AND IT WAS JUST A LITTLE BIT"
--- NOTE | 2020-02-04 21:36 | NUR ---
500ML NS BOLUS STARTED PER ALE MEYERS. 600ML INFUSED. RATE DECREASED TO TKO. WILL CONSULT ERP FOR FURTHER INSTRUCTIONS.
--- NOTE | 2020-02-04 21:56 | NUR ---
NS INFUSION DC'D PER MARIUSZ VINCENT.
--- NOTE | 2020-02-04 22:09 | NUR ---
PT TO & FROM [facility] BR PER NURIA. USED OWN WALKER IN BR. VOIDED SPECIMEN PROVIDED: CLEAR NOHEMI.
[2020-02-04 22:33] LABS: CULTURE INDICATED? YES; MICROSCOPIC INDICATED
--- NOTE | 2020-02-04 22:47 | NUR ---
PT REPORT TO VIDAL Peacock RN. PT CARE TO BE TRANSFERRED. PT DOZING ON BED.
[2020-02-04 22:52] VITALS: BP 106/36
--- NOTE | 2020-02-04 22:52 | NUR ---
REPORT RECEIVED FROM ALE MEDLEY. PLAN OF CARE DISCUSSED
--- NOTE | 2020-02-04 23:46 | NUR ---
Patient/Caregiver given discharge instructions and they have confirmed that they understand the instructions. Patient ambulatory with steady gait.
== END 2020-02-04 23:48 | disposition home or self-care (01) ==
LOC: ED 22:27
DX: R10.31 Right lower quadrant pain (principal); B18.2 Chronic viral hepatitis C; I10 Essential (primary) hypertension; Z90.49 Acquired absence of other specified parts of digestive tract
CPT/HCPCS: 36415; 74176; 80053; 81001; 83690; 85025; 87086; 99284

== ENCOUNTER 2020-02-11 17:28 | Inpatient (IN) | payer MEDICARE, MEDICAID ==
[~2020-02-11] VITALS: Ht 162.6 cm; Wt 46.1 kg
--- NOTE | 2020-02-11 18:15 | NUR ---
PT RESTING WITH EYES CLOSED. MONITOR IN PLACE.
[2020-02-11 19:20] LABS: ALANINE AMINOTRANSFERASE 17 U/L (12-78); ANION GAP 6 mmol/L (5-15); CALCIUM 7.7 mg/dL (8.5-10.1); CHLORIDE 112 mmol/L (98-107); CREATININE 0.57 mg/dL (0.55-1.02)
[2020-02-11 19:25] LABS: ALKALINE PHOSPHATASE 119 U/L (45-117); TOTAL PROTEIN 6.8 g/dL (6.4-8.2); TROPONIN I < 0.015 ng/mL (0.000-0.045)
[2020-02-11 19:33] LABS: SALICYLATE LEVEL < 1.7 mg/dL (2.8-20.0)
[2020-02-11 19:42] LABS: MEAN CORPUSCULAR HEMOGLOBIN 33.8 pg (27.0-34.8); MEAN CORPUSCULAR HGB CONC 33.7 g/dL (32.4-35.8); MEAN CORPUSCULAR VOLUME 100.3 fL (80-100); MEAN PLATELET VOLUME 8.1 fL (7.4-10.4); PLATELET COUNT 99 x10^3/uL (130-400); RED BLOOD COUNT 3.71 x10^6/uL (3.82-5.3); RED CELL DISTRIBUTION WIDTH 14.7 % (9.6-15.2)
[2020-02-11 19:44] LABS: MD YES
[2020-02-11 19:51] LABS: ANISOCYTOSIS 1+; BAND#(MANUAL) 0.08 x10^3/uL; BANDS%(MANUAL) 2 % (0-7); EOS#(MANUAL) 0.19 x10^3/uL (0.0-0.4); EOS% (MANUAL) 5 % (1-7); LYMPH#(MANUAL) 1.22 x10^3/uL (1-3.4); LYMPHS% (MANUAL) 32 % (22-44); MONOS#(MANUAL) 0.34 x10^3/uL (0.3-2.7); MONOS% (MANUAL) 9 % (2-9); SEG#(MANUAL) 1.98 x10^3/uL (1.8-6.8); SEGS% (MANUAL) 52 % (42-75)
[2020-02-11 19:53] LABS: <PLATELET ESTIMATE> DECREASED; <PLT MORPHOLOGY> NORMAL PLT MORPH
--- NOTE | 2020-02-11 20:00 | NUR ---
KARISHMA COLLECTED SC WITH ALE DRAKE. SENT TO LAB. MONITOR IN PLACE.
[2020-02-11 20:23] LABS: MICROSCOPIC NOT IND
[2020-02-11 20:29] LABS: CULTURE INDICATED? NO
[2020-02-11 20:34] LABS: AMPHETAMINE SCREEN, URINE Negative (Negative); BARBITURATE SCREEN, URINE Negative (Negative); BENZODIAZEPINE SCREEN, URINE Negative (Negative); CANNABINOID SCREEN, URINE Negative (Negative); COCAINE SCREEN, URINE Negative (Negative); METHADONE SCREEN, URINE Negative (Negative); OPIATE SCREEN, URINE Negative (Negative)
[2020-02-11] MEDS: SODIUM CHLORIDE 0.9% 1,000 ML IV ONE ×2 (20:44→22:21)
--- NOTE | 2020-02-11 21:02 | NUR ---
REPORT FROM ALE COOK. PT CARE RESPONSIBILITIES ASSUMED.
--- NOTE | 2020-02-11 21:07 | NUR ---
ATTEMPTED TO CALL REPORT TO FLOOR, RECEIVING RN CURRENTLY UNAVAILABLE.
--- NOTE | 2020-02-11 21:22 | NUR ---
REPORT TO ALE HERMOSILLO. PT READY FOR TRANSPORT AT THIS TIME.
[2020-02-11 21:45] VITALS: BP 102/68
[2020-02-11] MEDS ORDERED: LORazepam 2 MG/ML, 1ML IV PRN ×5 (22:00)
[2020-02-11] MEDS ORDERED: POTASSIUM CHLORIDE 20 MEQ, MAGNESIUM SULFATE 2 GM, THIAMINE 200 MG, MVI ADULT 10 ML, FO... IV PRN (22:00)
[2020-02-11] MEDS ORDERED: ONDANSETRON 2MG/ML, 2ML IVPush PRN (22:00)
[2020-02-11] MEDS ORDERED: LORazepam 0.5MG TABLET PO PRN (22:00)
[2020-02-11] MEDS ORDERED: LORazepam 1MG TABLET PO PRN ×4 (22:00)
[2020-02-11] MEDS ORDERED: hydrALAzine 20 MG/ML, 1ML IVPush PRN (22:00)
[2020-02-11 22:09] LABS: INTERNATIONAL NORMALIZED RATIO 1.17 (0.93-1.1); PROTHROMBIN TIME 12.4 Seconds (9.6-11.5)
[2020-02-11] MEDS: LACTULOSE 10 GM/15 ML UDC PO SCH (22:21)
[2020-02-12 00:20] VITALS: BP 97/62
[2020-02-12 04:38] LABS: MEAN CORPUSCULAR HEMOGLOBIN 33.8 pg (27.0-34.8); MEAN CORPUSCULAR HGB CONC 33.8 g/dL (32.4-35.8); MEAN PLATELET VOLUME 7.9 fL (7.4-10.4); PLATELET COUNT 91 x10^3/uL (130-400); RED BLOOD COUNT 3.63 x10^6/uL (3.82-5.3)
[2020-02-12 04:55] LABS: ALANINE AMINOTRANSFERASE 17 U/L (12-78); ALBUMIN 1.8 g/dL (3.4-5.0); ANION GAP 5 mmol/L (5-15); CALCIUM 7.4 mg/dL (8.5-10.1); CHLORIDE 115 mmol/L (98-107); CREATININE 0.48 mg/dL (0.55-1.02)
[2020-02-12 04:57] LABS: ALKALINE PHOSPHATASE 109 U/L (45-117); BILIRUBIN,TOTAL 2.1 mg/dL (0.2-1.0); TOTAL PROTEIN 5.9 g/dL (6.4-8.2)
[2020-02-12 06:06] LABS: MD YES
[2020-02-12 06:21] LABS: ANISOCYTOSIS 1+; EOS#(MANUAL) 0.22 x10^3/uL (0.0-0.4); EOS% (MANUAL) 7 % (1-7); LYMPH#(MANUAL) 1.47 x10^3/uL (1-3.4); LYMPHS% (MANUAL) 46 % (22-44); MONOS#(MANUAL) 0.22 x10^3/uL (0.3-2.7); MONOS% (MANUAL) 7 % (2-9); SEG#(MANUAL) 1.28 x10^3/uL (1.8-6.8); SEGS% (MANUAL) 40 % (42-75)
[2020-02-12 06:22] LABS: <PLATELET ESTIMATE> DECREASED; <PLT MORPHOLOGY> NORMAL PLT MORPH
[2020-02-12 08:17] VITALS: BP 105/74
[2020-02-12] MEDS: LACTULOSE 10 GM/15 ML UDC PO SCH ×3 (09:53→20:43)
[2020-02-12 14:30] VITALS: BP 110/70
[2020-02-12 18:34] LABS: OCCULT BLOOD NEGATIVE (NEGATIVE)
[2020-02-12 18:55] VITALS: BP 106/56
[2020-02-13 01:06] VITALS: BP 106/71
[2020-02-13 06:54] VITALS: BP 100/63
[2020-02-13] MEDS ORDERED: DIPHENHYDRAMINE 12.5MG/5ML, 10ML UDC PO PRN (10:00)
[2020-02-13] MEDS ORDERED: BETAMETHASONE DIPRO OINT 0.05%, 15GM TP PRN (10:00)
[2020-02-13] MEDS: LACTULOSE 10 GM/15 ML UDC PO SCH ×2 (10:00→16:23)
[2020-02-13] MEDS ORDERED: MAGNESIUM SULFATE PMX 2GM/50ML 50 ML IV ONE (10:00)
[2020-02-13 13:51] VITALS: BP 90/51
[2020-02-13] MEDS ORDERED: LACT10SO24 PO (14:23)
[2020-02-13] MEDS ORDERED: BETA15OI6 TP (14:47)
== END 2020-02-13 16:30 | disposition home or self-care (01) | DRG 433 ==
LOC: ED 19:31 → EDIP 21:04 → 3N 22:05
PROVIDERS: ADMIT Family Medicine; ATTEND Family Medicine
DX: K70.40 Alcoholic hepatic failure without coma (principal); K76.6 Portal hypertension; K70.30 Alcoholic cirrhosis of liver without ascites; B18.2 Chronic viral hepatitis C; D69.6 Thrombocytopenia, unspecified; D75.89 Other specified diseases of blood and blood-forming organs; E83.42 Hypomagnesemia; F17.200 Nicotine dependence, unspecified, uncomplicated; F41.9 Anxiety disorder, unspecified; G47.00 Insomnia, unspecified; I10 Essential (primary) hypertension; L40.9 Psoriasis, unspecified; Z59.0 Homelessness; Z63.8 Other specified problems related to primary support group; Z90.49 Acquired absence of other specified parts of digestive tract; Z90.89 Acquired absence of other organs; F19.10 Other psychoactive substance abuse, uncomplicated; F10.10 Alcohol abuse, uncomplicated
CPT/HCPCS: 36415; 80053; 80307; 81003; 82105; 82140; 82272; 82607; 82962; 83735; 84100; 84443; 84484; 85025; 85610; 99285; G0378; J3411; J3475; J3480; J7042; J7030

== ENCOUNTER 2020-09-09 20:32 | Emergency (ER) | payer MEDICARE, MEDICAID ==
[~2020-09-09] VITALS: Ht 160 cm; Wt 65.3 kg
[~2020-09-09 20:32] MED LIST changes: +BETA15OI6 TP; -CALC-666 PO; +CALC500T14 PO; +LACT10SO24 PO
[2020-09-09 20:38] VITALS: BP 118/65
[2020-09-09 22:12] LABS: BASOPHILS % (AUTO) 1 % (0-1); EOSINOPHILS % (AUTO) 0 % (1-7); LYMPHOCYTES % (AUTO) 27 % (22-44); MEAN CORPUSCULAR HEMOGLOBIN 33.5 pg (27.0-34.8); MEAN PLATELET VOLUME 8.3 fL (7.4-10.4); MONOCYTES % (AUTO) 10 % (2-9); NEUTROPHILS % (AUTO) 62 % (42-75); PLATELET COUNT 113 x10^3/uL (130-400); RED BLOOD COUNT 4.33 x10^6/uL (3.82-5.3); RED CELL DISTRIBUTION WIDTH 15.8 % (9.6-15.2)
[2020-09-09 22:14] LABS: MD NO
[2020-09-09 22:16] LABS: ALBUMIN 2.4 g/dL (3.4-5.0); ANION GAP 7 mmol/L (5-15); CALCIUM 8.3 mg/dL (8.5-10.1); CHLORIDE 106 mmol/L (98-107)
[2020-09-09 22:20] LABS: ALANINE AMINOTRANSFERASE 47 U/L (12-78); ALKALINE PHOSPHATASE 135 U/L (45-117); BILIRUBIN,TOTAL 5.1 mg/dL (0.2-1.0); CREATININE 0.61 mg/dL (0.55-1.02); TOTAL PROTEIN 7.8 g/dL (6.4-8.2)
--- NOTE | 2020-09-09 22:30 | NUR ---
pt to room from lobby
--- NOTE | 2020-09-09 22:47 | NUR ---
DR KATHLEEN AT BEDSIDE TO ASSESS
--- NOTE | 2020-09-09 22:55 | NUR ---
PT MEDICATED PER MAR
--- NOTE | 2020-09-10 00:05 | NUR ---
PT SLEEPING ON [facility] STS CANNOT PEE YET REFUSES STRAIGHT CATH
--- NOTE | 2020-09-10 00:48 | NUR ---
PT TOLERTING PO FLUIDS AT THIS TIME. STILL CANNOT URINATE/ REFUSE STRAIGHT CATH.
--- NOTE | 2020-09-10 01:07 | NUR ---
Patient given discharge instructions and they have confirmed that they understand the instructions. Patient ambulatory with steady gait. nad, denies additional questions or needs at this time, provided taxi voucher, no personal belongings left in room at time of dc.
== END 2020-09-10 01:09 | disposition home or self-care (01) ==
LOC: ED 21:02
DX: M54.5 Low back pain (principal); Z72.9 Problem related to lifestyle, unspecified; I10 Essential (primary) hypertension; Z90.49 Acquired absence of other specified parts of digestive tract; F17.200 Nicotine dependence, unspecified, uncomplicated
CPT/HCPCS: 36415; 80053; 83690; 85025; 99283

== ENCOUNTER 2020-10-12 12:37 | Emergency (ER) | payer MEDICARE, MEDICAID ==
[~2020-10-12] VITALS: Ht 160 cm; Wt 79.3 kg
--- NOTE | 2020-10-12 12:47 | NUR ---
BACK PAIN FOR YEARS, WORSE FOR LAST 2 DAYS. PT REPORTS PAIN IS RIGHT LOWER BACK RADIATING DOWN RIGHT LEG. PT ALSO C/O LEFT EYELID SWELLING. CHART UP FOR .
[2020-10-12] MEDS ORDERED: OxyconTIN ER 15 MG TAB.ER PO ONE (13:00)
--- NOTE | 2020-10-12 13:14 | NUR ---
REPORT TO ALISON Vance RN.
[2020-10-12 15:07] VITALS: BP 105/46
--- NOTE | 2020-10-12 15:07 | NUR ---
AFTER PROVIDED A SNACK, PT SLEEPING WHILE AWAITING DISCHARGE
--- NOTE | 2020-10-12 16:00 | NUR ---
PT'S FRIEND CONTACTED AT PT'S REQUEST. UNABLE TO GET PT TO ASSISTED. PT INTO WHEELCHAIR WITHOUT ASSISTANCE AND TO LOBBY WHERE SHE WILL WAIT FOR TAXI WITH VOUCHER TO GO TO HOMELESS ASSISTED.
== END 2020-10-12 15:59 | disposition home or self-care (01) ==
LOC: ED 13:29
DX: M54.5 Low back pain (principal); R32 Unspecified urinary incontinence; I10 Essential (primary) hypertension; Z90.49 Acquired absence of other specified parts of digestive tract
CPT/HCPCS: 99283

== ENCOUNTER 2020-10-12 20:12 | Observation (INO) | payer MEDICARE, MEDICAID ==
[~2020-10-12] VITALS: Ht 160 cm; Wt 84.7 kg
[2020-10-12] MEDS ORDERED: ALUMINUM/MAG/SIMETHICONE 30 ML UDC ONE (21:14)
[2020-10-12] MEDS: ALUMINUM/MAG/SIMETHICONE 30 ML UDC PO PRN (21:23)
--- NOTE | 2020-10-12 21:26 | NUR ---
PT SEEN HERE TODAY FOR LBP, THEN DC. PT GIVEN TAXI VOUCHER TO [facility]. PER SW, PT NEEDS TO BE ADMITTED FOR HER BACK PAIN. PT PROVIDED SANDWICH AND WARM BLANKET.
[2020-10-12] MEDS ORDERED: BETAMETHASONE DIPRO OINT 0.05%, 15GM TP PRN (22:00)
[2020-10-12] MEDS ORDERED: ONDANSETRON ODT 4 MG PO PRN (22:00)
--- NOTE | 2020-10-12 22:19 | NUR ---
PIV PLACED. MORE WARM BLANKETS PROVIDED.
[2020-10-12] MEDS: SODIUM CHLORIDE FLUSH 10ML SYR IVF SCH (22:22)
--- NOTE | 2020-10-12 23:07 | NUR ---
REPORT GIVEN TO MICHAEL AGUILERA.
--- NOTE | 2020-10-12 23:13 | NUR ---
BEDSIDE REPORT FROM FATMATA AGUILERA ASSUMING CARE OF PT AT THIS TIME
[2020-10-12] MEDS: LACTULOSE 10 GM/15 ML UDC PO SCH (23:48)
--- NOTE | 2020-10-12 23:48 | NUR ---
PT REFUSED MEDS AT THIS TIME
--- NOTE | 2020-10-13 01:24 | NUR ---
PT RESTING ON GURJOSE [place] NADN AT THIS TIME RESP EVEN AND UNLABORED
--- NOTE | 2020-10-13 02:32 | NUR ---
pt provided sprite as requested. repositioned and educated that she will go upstairs once a room is available
--- NOTE | 2020-10-13 04:00 | NUR ---
PT NOW FAST ASLEEP ON [place] NO NEEDS EXPRESSED.
--- NOTE | 2020-10-13 05:20 | NUR ---
HOSPITAL BED HAS ARRIVED ONCE PATIENT AWAKENS WILL TRANSFER TO NEW BED TO ALLOW FOR AMPLE REST TIME. PT CONTINUES TO REST NO NEEDS RESP EVEN AND UNLABORED.
--- NOTE | 2020-10-13 06:26 | NUR ---
pt still sleeping on [place] at this time
--- NOTE | 2020-10-13 06:55 | NUR ---
REPORT TO ALISON AGUILERACONCRETE PRODUCTS DISPATCHER OF CARE AT THIS TIME
--- NOTE | 2020-10-13 07:41 | NUR ---
PT FROM [facility] TO [facility] AND BED BROUGHT IN. PT THEN TRANSFERRED HERSELF FROM [facility] TO HOSPITAL BED. AWAITING ROOM ASSIGNMENT
--- NOTE | 2020-10-13 08:59 | NUR ---
TASK RN NOTE: PT ASLEEP UPON ENTRY TO ROOM. AWAKENS TO NAME. NAD NOTED. PT MEAL TRAY PROVIDED. RESPIRATIONS EVEN AND UNLABORED ON RA. SIDE RAIL UP, CALL LIGHT IN REACH.
[2020-10-13] MEDS: SODIUM CHLORIDE FLUSH 10ML SYR IVF SCH ×2 (09:00→23:05)
--- NOTE | 2020-10-13 10:00 | NUR ---
REPORT GIVEN TO CRISTINA AGUILERA, RM [id number]
[2020-10-13 10:54] VITALS: BP 101/67
[2020-10-13] MEDS ORDERED: PIPERONYL BUTOXIDE/PYRETHRINS 4OZ. SHAMPOO TP SCH (11:00)
[2020-10-13] MEDS: GABAPENTIN 300 MG CAPSULE PO SCH ×3 (11:36→23:05)
[2020-10-13] MEDS: LACTULOSE 10 GM/15 ML UDC PO SCH ×3 (11:36→22:59)
[2020-10-13] MEDS: LIDODERM 5% PATCH TD SCH (11:38)
[2020-10-13 15:00] VITALS: BP 94/61
[2020-10-13] MEDS: ALUMINUM/MAG/SIMETHICONE 30 ML UDC PO PRN (17:34)
[2020-10-13 20:51] VITALS: BP 101/57
[2020-10-14] MEDS: LIDODERM REMOVE PATCH NOTE XX SCH (00:58)
[2020-10-14 03:45] VITALS: BP 102/58
[2020-10-14 07:30] VITALS: BP 90/54
[2020-10-14] MEDS: SODIUM CHLORIDE FLUSH 10ML SYR IVF SCH ×2 (09:00→21:54)
[2020-10-14] MEDS: LACTULOSE 10 GM/15 ML UDC PO SCH ×3 (09:40→21:54)
[2020-10-14] MEDS: GABAPENTIN 300 MG CAPSULE PO SCH ×4 (09:40→21:54)
[2020-10-14] MEDS: LIDODERM 5% PATCH TD SCH (09:41)
[2020-10-14 13:34] VITALS: BP 114/74
[2020-10-14 19:17] VITALS: BP 105/71
[2020-10-14] MEDS: ALUMINUM/MAG/SIMETHICONE 30 ML UDC PO PRN (21:54)
[2020-10-15] MEDS: LIDODERM REMOVE PATCH NOTE XX SCH
[2020-10-15 00:39] VITALS: BP 110/70
[2020-10-15 07:40] VITALS: BP 103/70
[2020-10-15] MEDS: GABAPENTIN 300 MG CAPSULE PO SCH (09:00)
[2020-10-15] MEDS: SODIUM CHLORIDE FLUSH 10ML SYR IVF SCH (09:00)
[2020-10-15] MEDS: LACTULOSE 10 GM/15 ML UDC PO SCH (09:57)
[2020-10-15] MEDS: LIDODERM 5% PATCH TD SCH (09:58)
[2020-10-15 12:35] VITALS: BP 100/69
[2020-10-20] MEDS ORDERED: PIPERONYL BUTOXIDE/PYRETHRINS 4OZ. SHAMPOO TP ONE (11:00)
== END 2020-10-15 15:15 | disposition home or self-care (01) ==
LOC: ED 20:35 → INTOOBSV 21:28 → EDIP 21:28 → 4NE 10-13 10:32
PROVIDERS: ADMIT Family Medicine; ATTEND Family Medicine
DX: R53.81 Other malaise (principal); G89.29 Other chronic pain; M54.5 Low back pain; L40.9 Psoriasis, unspecified; K74.60 Unspecified cirrhosis of liver; K76.6 Portal hypertension; B19.20 Unspecified viral hepatitis C without hepatic coma; F15.90 Other stimulant use, unspecified, uncomplicated; F19.10 Other psychoactive substance abuse, uncomplicated; F32.9 Major depressive disorder, single episode, unspecified; F17.210 Nicotine dependence, cigarettes, uncomplicated; Z88.0 Allergy status to penicillin; Z79.899 Other long term (current) drug therapy; Z99.3 Dependence on wheelchair; Z59.0 Homelessness; Z63.8 Other specified problems related to primary support group
CPT/HCPCS: 97162; 97165; 99283; G0378

== ENCOUNTER 2020-10-26 08:16 | Emergency (ER) | payer MEDICARE, MEDICAID ==
[~2020-10-26] VITALS: Ht 160 cm; Wt 73.1 kg
[2020-10-26] MEDS ORDERED: METHOCARBAMOL 750 MG TABLET PO ONE (08:30)
[2020-10-26] MEDS ORDERED: OXYcodone/APAP 5/325MG TABLET PO ONE (08:30)
--- NOTE | 2020-10-26 08:31 | NUR ---
PT HAS WARM BLANKETS AND HEATER HOSE. PT WALKER AND PERSON BELONGINGS BAG BROUGHT TO ROOM BY ANGELITA.
[2020-10-26] MEDS ORDERED: OXYcodone/APAP 5/325MG TABLET ONE (08:54)
[2020-10-26] MEDS ORDERED: METHOCARBAMOL 750 MG TABLET ONE (08:54)
[2020-10-26 09:23] LABS: BASOPHILS % (AUTO) 1 % (0-1); EOSINOPHILS % (AUTO) 3 % (1-7); LYMPHOCYTES % (AUTO) 42 % (22-44); MEAN CORPUSCULAR HEMOGLOBIN 33.9 pg (27.0-34.8); MEAN CORPUSCULAR HGB CONC 34.4 g/dL (32.4-35.8); MONOCYTES % (AUTO) 7 % (2-9); NEUTROPHILS % (AUTO) 47 % (42-75); PLATELET COUNT 105 x10^3/uL (130-400); RED BLOOD COUNT 4.03 x10^6/uL (3.82-5.3); RED CELL DISTRIBUTION WIDTH 16.3 % (9.6-15.2)
[2020-10-26 09:24] LABS: MD NO
[2020-10-26 09:45] LABS: ALBUMIN 2.3 g/dL (3.4-5.0); ANION GAP 5 mmol/L (5-15); CALCIUM 8.2 mg/dL (8.5-10.1); CHLORIDE 116 mmol/L (98-107)
[2020-10-26 09:46] LABS: CREATININE 0.52 mg/dL (0.55-1.02)
[2020-10-26 09:49] VITALS: BP 105/61
[2020-10-26 09:53] LABS: MICROSCOPIC INDICATED
[2020-10-26] MEDS ORDERED: FOSFOMYCIN 3 GM PACKET ONE (10:25)
[2020-10-26] MEDS ORDERED: FOSFOMYCIN 3 GM PACKET PO ONE (10:30)
--- NOTE | 2020-10-26 10:46 | NUR ---
TAXI VOUCHER PROVIDED. PT ASSISTED TO WC THEN DC DESK.
== END 2020-10-26 11:13 | disposition home or self-care (01) ==
LOC: ED 09:14
DX: N30.00 Acute cystitis without hematuria (principal); Z59.0 Homelessness; Z20.822 Contact with and (suspected) exposure to COVID-19; F17.210 Nicotine dependence, cigarettes, uncomplicated
CPT/HCPCS: 71045; 80048; 81001; 82040; 85025; 87077; 87086; 87186; 87635; 99284